=== PATIENT | female | born 1965 | race African-American/Black ===

== ENCOUNTER 2018-03-11 07:23 | Day surgery (SDC) | payer MEDICARE, MEDICAID ==
[2018-03-02 10:57] VITALS: BMI 32.1
[2018-03-11] MEDS ORDERED: CEFAZOLIN 2 GM/50 ML BAG ONE (08:28)
[2018-03-11 08:41] LABS: #Basophils 0.1 thou/uL (0.0-0.2); #Eosinphils 0.3 thou/uL (0.0-0.7); #Lymphocytes 3.1 thou/uL (1.20-3.40); #Monocytes 0.5 thou/uL (0.11-0.59); #Neutrophils 5.6 thou/uL (1.40-6.50); %Basophils 0.9 % (0.0-1.0); %Eosinophils 2.7 % (0.0-10.0); %Lymphocytes 32.2 % (21.0-51.0); %Monocytes 5.7 % (0.0-10.0); %Neutrophils 58.6 % (42.0-75.0); Hemoglobin 10.1 g/dL (12.0-16.0); Mean Corpuscular HGB CONC 29.7 g/dL (32.0-36.0); Mean Corpuscular Hemoglobin 26.1 pg (27.0-31.0); Mean Corpuscular Volume 87.7 fL (78.0-98.0); Mean Platelet Volume 7.5 fL (7.4-10.4); Platelet Count 252 thou/uL (130-400); RBC Distribution Width 13.9 % (11.5-14.5); Red Blood Cell (RBC) Count 3.88 mill/uL (4.20-5.40); White Blood Cell (WBC) Count 9.6 thou/uL (4.8-10.8)
[2018-03-11 09:05] LABS: Hypochromia SLIGHT = 6-15 cells (100X) (0-5/hpf); MDiff Complete? YES; PLT Morphology Comment Appears Adequate; Polychromasia SLIGHT = 2-3 cells (100X) (0-2/hpf)
[2018-03-11 09:08] LABS: Anion Gap 11 mmol/L (10-20); BUN (Urea Nitrogen) 22 mg/dL (9.8-20.1); Calc. Creatinine Clearance 69 mL/min (70-130); Carbon Dioxide 21 mmol/L (22-29); Chloride 108 mmol/L (98-107); Estimated GFR-MDRD 50; Glucose 160 mg/dL (70-105); Potassium 4.4 mmol/L (3.5-5.1); Sodium 136 mmol/L (136-145)
[2018-03-11] MEDS ORDERED: Fentanyl 100 MCG/2 ML VIAL ONE (09:18)
[2018-03-11] MEDS ORDERED: Bacitracin Zinc Ointment 30 gm TUBE ONE (09:25)
[2018-03-11] MEDS ORDERED: Bupivacaine/Epinephrine 0.25% 30 ML VIAL ONE ×2 (09:25→11:02)
[2018-03-11] MEDS ORDERED: Lidocaine 2% PF 5 ML VIAL ONE (09:25)
[2018-03-11] MEDS ORDERED: Propofol 500 MG/50 ML VIAL ONE (09:26)
[2018-03-11] MEDS ORDERED: Ketamine 50 MG/ML (10ML VIAL) ONE (09:26)
[2018-03-11] MEDS ORDERED: Midazolam HCl 2 mg/2 ml Vial ONE (09:26)
[2018-03-11] MEDS ORDERED: HYDROcodone/Acetaminophen 5/325 mg Tablet ONE (12:12)
[2018-03-11] MEDS ORDERED: PHENYLEPHRINE-NS 100 MCG/ML 10 ML SYRINGE ONE (17:07)
[2018-03-11] MEDS ORDERED: PROPOFOL 200 MG/20 ML VIAL ONE (17:07)
--- NOTE | 2018-03-13 09:38 | PDOC.OP ---
Operative Note - Operative Note Operative Note: PROCEDURE: Excision of left thigh subcutaneous mass DATE OF PROCEDURE: 03/11/2018 SURGEON: Munira Lewis M.D. PREOPERATIVE DIAGNOSES: Subcutaneous mass of the left thigh POSTOPERATIVE DIAGNOSIS: Subcutaneous mass in the left thigh HISTORY: Patient with a 10 x 7 cm subcutaneous mass on her left lateral thigh present for over 10 years. This was clinically consistent with a lipoma but on ultrasound there was a central area which was inhomogeneous and hypoechoic so a core biopsy was performed. This did not show any malignancy, just inflammatory and hemorrhagic changes. It was felt that the patient likely had an injury or fat necrosis of the lipoma. She desired to have it excised for symptomatic purposes as it was enlarging and becoming uncomfortable. PROCEDURE IN DETAIL: After informed consent was obtained the patient was taken to the operating which is placed in supine position and anesthesia was administered. She was prepped and draped in a standard sterile fashion and local anesthesia infused to the skin and subcutaneous tissue surrounding the mass. A longitudinal incision was made and dissection carried down to the mass which appeared to be fibrotic fat. This was in close approximation to the dermis of the skin anteriorly. The mass was dissected free circumferentially using Bovie electrocautery. It was well defined and lobulated and firm and fibrotic in appearance. The mass was excised and marked for orientation with a long posterior, short superior and looped superficial suture. Hemostasis was obtained using Bovie electrocautery and the wound was irrigated. A VÍCTOR drain was placed inferiorly and secured to the skin. The subcutaneous tissues were reapproximated at intervals with [id number] Vicryl sutures but the cavity could not be completely closed due to the large size of the defect and the lack of subcutaneous tissues anteriorly. Additional local anesthesia was infused for postoperative pain control and the skin was closed with a running 4-0 subcuticular Monocryl suture. Dermabond was placed and allowed to dry. The VÍCTOR was placed to suction and a fluffs dressing and Scott wrap was placed. The patient was taken to the recovery room in good condition. Estimated blood loss was minimal. There were no complications. Specimen is left lateral thigh mass.
== END 2018-03-11 12:48 | disposition home or self-care (01) ==
LOC: SDC 07:23
PROVIDERS: ATTEND Surgery
PROC: 0JBM0ZZ Excision of Left Upper Leg Subcutaneous Tissue and Fascia, Open Approach (ICD-10-PCS; principal; 2018-03-11)
DX: D17.24 Benign lipomatous neoplasm of skin and subcutaneous tissue of left leg (principal); I25.10 Atherosclerotic heart disease of native coronary artery without angina pectoris; F32.9 Major depressive disorder, single episode, unspecified; E11.9 Type 2 diabetes mellitus without complications; I10 Essential (primary) hypertension; Z79.02 Long term (current) use of antithrombotics/antiplatelets; Z79.82 Long term (current) use of aspirin; Z79.84 Long term (current) use of oral hypoglycemic drugs; Z79.899 Other long term (current) drug therapy
CPT/HCPCS: 80048; 85025; 88304; J2001; J2250; J2704; J3010

== ENCOUNTER 2018-05-11 06:04 | Inpatient (IN) | payer MEDICARE, MEDICAID ==
[2018-05-08 12:44] VITALS: BMI 32.1
[2018-05-11] MEDS ORDERED: Sodium Chloride 0.9% 10 ML ONE (06:30)
[2018-05-11 06:41] LABS: #Basophils 0.1 thou/uL (0.0-0.2); #Eosinphils 0.4 thou/uL (0.0-0.7); #Lymphocytes 2.8 thou/uL (1.20-3.40); #Monocytes 0.4 thou/uL (0.11-0.59); #Neutrophils 5.5 thou/uL (1.40-6.50); %Basophils 0.9 % (0.0-1.0); %Eosinophils 3.9 % (0.0-10.0); %Lymphocytes 30.6 % (21.0-51.0); %Monocytes 4.4 % (0.0-10.0); %Neutrophils 60.2 % (42.0-75.0); Hemoglobin 10.3 g/dL (12.0-16.0); Mean Corpuscular Hemoglobin 27.2 pg (27.0-31.0); Mean Platelet Volume 7.5 fL (7.4-10.4); Platelet Count 239 thou/uL (130-400); RBC Distribution Width 13.8 % (11.5-14.5); Red Blood Cell (RBC) Count 3.78 mill/uL (4.20-5.40); White Blood Cell (WBC) Count 9.1 thou/uL (4.8-10.8)
[2018-05-11] MEDS ORDERED: CEFAZOLIN 2 GM/50 ML BAG ONE (06:52)
[2018-05-11 06:59] LABS: Anion Gap 15 mmol/L (10-20); BUN (Urea Nitrogen) 17 mg/dL (9.8-20.1); Calc. Creatinine Clearance 74 mL/min (70-130); Calcium 9.1 mg/dL (7.8-10.44); Carbon Dioxide 21 mmol/L (22-29); Chloride 106 mmol/L (98-107); Estimated GFR-MDRD 54; Glucose 163 mg/dL (70-105); Potassium 4.2 mmol/L (3.5-5.1); Sodium 138 mmol/L (136-145)
[2018-05-11] MEDS ORDERED: Phenylephrine HCL 10 MG/ML VIAL ONE (07:09)
[2018-05-11] MEDS ORDERED: Fentanyl 250 MCG/5 ML VIAL ONE (07:09)
[2018-05-11] MEDS ORDERED: HYDROmorphone 2 MG/ML VIAL SLOW IVP PRN (07:57)
[2018-05-11] MEDS ORDERED: Promethazine HCl 25 MG/ML VIAL IM PRN ×2 (07:57→09:19)
[2018-05-11] MEDS ORDERED: Meperidine HCl/PF 25 MG/ML VIAL SLOW IVP PRN (07:57)
[2018-05-11] MEDS ORDERED: Promethazine HCl 25 MG/ML VIAL SLOW IVP PRN (07:57)
[2018-05-11] MEDS ORDERED: Morphine Sulfate 2 MG/ML SYRINGE SLOW IVP PRN (07:57)
[2018-05-11] MEDS ORDERED: PACU-Morphine 4MG/ML VIAL SLOW IVP PRN (07:57)
[2018-05-11] MEDS ORDERED: Ondansetron HCl/PF 4 MG/2 ML Vial IVP PRN (07:57)
[2018-05-11] MEDS ORDERED: Fentanyl 100 MCG/2 ML VIAL ONE ×3 (09:05→09:49)
[2018-05-11] MEDS ORDERED: traMADol HCl 50 MG TAB PO PRN ×2 (09:19)
[2018-05-11] MEDS ORDERED: Promethazine HCl 12.5 MG SUPP PR PRN (09:19)
[2018-05-11] MEDS ORDERED: tiZANidine HCl 4 MG TAB PO PRN (09:19)
[2018-05-11] MEDS ORDERED: diphenhydrAMINE 50 MG/ML VIAL IVP PRN (09:19)
[2018-05-11] MEDS ORDERED: Promethazine 25 MG TAB PO PRN (09:19)
[2018-05-11] MEDS ORDERED: Morphine 4 MG/ML VIAL SLOW IVP PRN ×2 (09:19→09:21)
[2018-05-11] MEDS ORDERED: Milk Of Magnesia 30 ML UDCUP PO PRN (09:19)
[2018-05-11] MEDS ORDERED: diphenhydrAMINE 25 MG CAP PO PRN (09:19)
[2018-05-11] MEDS ORDERED: HYDROcodone/Acetaminophen 10/325 mg Tablet PO PRN (09:19)
[2018-05-11] MEDS ORDERED: Mag-Al 1200 mg/1200 mg/30 ML UDCUP PO PRN (09:19)
[2018-05-11] MEDS ORDERED: Ondansetron PF 4 MG/2 ML Vial IM PRN (09:22)
[2018-05-11] MEDS ORDERED: Acetaminophen/Codeine 30-300mg Tablet PO PRN ×2 (09:26→09:27)
[2018-05-11] MEDS ORDERED: Nitroglycerin 0.4 MG TAB (25 Tab Bottle) SL PRN (09:28)
[2018-05-11] MEDS ORDERED: cloNIDine 0.1 MG TAB PO PRN (10:59)
[2018-05-11] MEDS ORDERED: HYDROcodone/Acetaminophen 5/325 mg Tablet PO PRN (10:59)
[2018-05-11] MEDS ORDERED: Benzonatate 100 MG CAP PO PRN (10:59)
[2018-05-11] MEDS ORDERED: HumaLOG 300 UNITS/3 ML VIAL SC PRN (10:59)
[2018-05-11] MEDS ORDERED: Bisacodyl 5 MG TAB PO PRN (10:59)
[2018-05-11] MEDS ORDERED: Diabetic Tussin 200 MG/10 ML UDCUP PO PRN (10:59)
[2018-05-11] MEDS ORDERED: Dextrose 50% Abboject 50 ML SYRINGE SLOW IVP PRN (10:59)
[2018-05-11] MEDS ORDERED: Senokot S 8.6-50 MG TAB PO PRN (10:59)
[2018-05-11] MEDS ORDERED: Acetaminophen 500 MG TAB PO PRN (10:59)
[2018-05-11] MEDS ORDERED: hydrALAZINE 20 MG/ML VIAL SLOW IVP PRN (10:59)
[2018-05-11] MEDS ORDERED: Dextrose 5% in Water 1,000 ML IV PRN (10:59)
[2018-05-11] MEDS: Sodium Chloride 0.9% 1,000 ML IV SCH ×2 (11:02→17:55)
--- NOTE | 2018-05-11 11:29 | OP ---
DATE OF PROCEDURE: 05/11/2018 APPLICATIONS DEVELOPER: Sven Collins PA-C PROCEDURES PERFORMED: Right L3-L4 laminectomy, facetectomy, foraminotomy, interbody arthrodesis, intervertebral biomechanical device, local morselized autograft, demineralized bone matrix, posterolateral arthrodesis L4-L5. DESCRIPTION OF PROCEDURE: The patient was brought to the operating room and intubated. She was rolled in a prone position on gel-filled chest rolls. An incision was made exposing L3 and L4 on the right and the level was confirmed by x-ray. We performed a right L3-L4 laminectomy, facetectomy, and foraminotomy, completely decompressing right L3 and right L4. The right L3-L4 disk was incised and debrided and completely removed. The bony endplates were decorticated for the purpose arthrodesis and appropriate-sized intervertebral biomechanical PEEK device was brought into the field and filled with demineralized bone matrix, local morselized autograft and tapped in place securely at L3-L4. Next, pedicle screws were placed at right L3 and right L4 using lateral fluoroscopic guidance. The froilan was secured between the screws, connected by nuts, which were final tightened. The wound was then extensively irrigated and maximum hemostasis was secured. Vancomycin powder was applied and the wound was closed in anatomic layers. Job ID: [id number]
[2018-05-11] MEDS: HumaLOG 300 UNITS/3 ML VIAL SC PRN ×2 (14:10→17:58)
[2018-05-11] MEDS: CEFAZOLIN 2 GM/50 ML-DEXTROSE 2 GM in Premix Bag 1 BAG IVPB SCH ×2 (14:10→23:20)
--- NOTE | 2018-05-11 14:26 | PDOC.PN ---
- Subjective Encounter Start Date: 05/11/18 Encounter Start Time: 14:24 Subjective: s/p lumbar laminectomy.denies any pain.no CP/SOB.family at bedside -: IM team consulted for medical Management.PCP Dr. Howell -: EMR reviewed in detail from prior hospitalizations vehicle safety inspector is Dr. Duque.Pt is compliant with meds and appointments - Objective MAR Reviewed: Yes Vital Signs & Weight: Vital Signs (12 hours) Temp Pulse Resp BP Pulse Ox 05/11/18 12:00 94 L 05/11/18 10:25 97.8 F 71 16 117/70 94 L Weight Weight 199 lb Result Diagrams: 05/11/18 06:33 05/11/18 06:33 Phys Exam - Physical Examination Constitutional: NAD HEENT: PERRLA, moist MMs, sclera anicteric, oral pharynx no lesions Neck: no nodes, no JVD, supple, full ROM Respiratory: no wheezing, no rales, no rhonchi, clear to auscultation bilateral Cardiovascular: RRR, no significant murmur, no rub Gastrointestinal: soft, non-tender, no distention, positive bowel sounds Musculoskeletal: no edema, pulses present Neurological: non-focal, normal sensation, moves all 4 limbs Psychiatric: normal affect, A&O x 3 Skin: no rash Dx/Plan (1) Chronic systolic CHF (congestive heart failure), NYHA class 2 Code(s): I50.22 - CHRONIC SYSTOLIC (CONGESTIVE) HEART FAILURE Status: Chronic Comment: Cont ASA,Statin,BB,IVANIA-I.On plavix (2) DM2 (diabetes mellitus, type 2) Status: Chronic (3) HTN (hypertension) Code(s): I10 - ESSENTIAL (PRIMARY) HYPERTENSION Status: Chronic (4) Status post lumbar laminectomy Code(s): Z98.890 - OTHER SPECIFIED POSTPROCEDURAL STATES Status: Acute (5) CAD (coronary artery disease) Code(s): I25.10 - ATHSCL HEART DISEASE OF [place] CORONARY ARTERY W/O ANG PCTRS Status: Chronic Comment: Mild-according to Cath in 2014 (6) Mitral valve regurgitation Status: Chronic Qualifiers: Cardiac valve disease etiology: nonrheumatic Qualified Code(s): I34.0 - Nonrheumatic mitral (valve) insufficiency - Plan plan discussed w/ family, PT/OT, respiratory therapy, incentive spirometry, out of bed/ambulate, DVT proph w/SCDs Hold metformin,.add ISS w Accuchecks -: BMP and CBC in am -: cont home meds as below. HD stable for now -: Pt denies having any PPM/AICD.last EF 25% in 2014 but reports that she -: follows w cardiology as an OP regularly.Asymptomatic.suspect improvement * .IM team will follow * Pain control,rehab options per Primary team Review of Systems - Review of Systems Constitutional: negative: fever, chills, sweats, weakness, malaise, other ENT: negative: Ear Pain, Ear Discharge, Nose Pain, Nose Discharge, Nose Congestion, Mouth Pain, Mouth Swelling, Throat Pain, Throat Swelling, Other Respiratory: negative: Cough, Dry, Shortness of Breath, Hemoptysis, SOB with Excertion, Pleuritic Pain, Sputum, Wheezing Cardiovascular: negative: chest pain, palpitations, orthopnea, paroxysmal nocturnal dyspnea, edema, light headedness, other Gastrointestinal: negative: Nausea, Vomiting, Abdominal Pain, Diarrhea, Constipation, Melena, Hematochezia, Other Genitourinary: negative: Dysuria, Frequency, Incontinence, Hematuria, Retention , Other Musculoskeletal: negative: Neck Pain, Shoulder Pain, Arm Pain, Back Pain, Hand Pain, Leg Pain, Foot Pain, Other Neurological: negative: Weakness, Numbness, Incoordination, Change in Speech, Confusion, Seizures, Other - Medications/Allergies Allergies/Adverse Reactions: Allergies Allergy/AdvReac Type Severity Reaction Status Date / Time No Known Allergies Allergy Verified 05/08/18 12:37 Medications: Current Medications Acetaminophen (Tylenol) 1,000 mg PO Q6H PRN PRN Reason: Mild Pain (1-3) Acetaminophen/Codeine Phosphate (Tylenol #3) 1 tab PO Q6H PRN PRN Reason: Mild Pain (1-3) Acetaminophen/Codeine Phosphate (Tylenol #3) 2 tab PO Q6H PRN PRN Reason: Moderate Pain (4-6) Hydrocodone Bitart/Acetaminophen ([place] 10/325) 1 tab PO Q4H PRN PRN Reason: PAIN (1-3) Hydrocodone Bitart/Acetaminophen ([place] 10/325) 2 tab PO Q4H PRN PRN Reason: PAIN (4-6) Hydrocodone Bitart/Acetaminophen ([place] 5/325) 1 tab PO Q4H PRN PRN Reason: Moderate Pain (4-6) Al Hydroxide/Mg Hydroxide (Maalox) 30 ml PO Q4H PRN PRN Reason: Heartburn or Indigestion Atorvastatin Calcium (Lipitor) 10 mg PO HS [facility] Benzonatate (Tessalon) 100 mg PO Q6H PRN PRN Reason: Cough Bisacodyl (Dulcolax) 10 mg PO DAILYPRN PRN PRN Reason: Constipation Carvedilol (Coreg) 25 mg PO BID [facility] Clonidine (Catapres) 0.1 mg PO Q4H PRN PRN Reason: SBP > 160____ Dextrose/Water (Dextrose 50%) 25 gm SLOW IVP PRN PRN PRN Reason: Hypoglycemia Diphenhydramine HCl (Benadryl) 25 mg PO Q6H PRN PRN Reason: Itching Diphenhydramine HCl (Benadryl) 25 mg IVP Q6H PRN PRN Reason: Itching Famotidine (Pepcid) 20 mg PO DAILY [facility] Furosemide (Lasix) 20 mg PO DAILY [facility] Glucagon (Glucagon) 1 mg IM PRN PRN PRN Reason: Hypoglycemia Guaifenesin (Robitussin Sf) 200 mg PO Q4H PRN PRN Reason: Cough Hydralazine HCl (Apresoline) 50 mg PO TID [facility] Hydralazine HCl (Apresoline) 10 mg SLOW IVP Q4H PRN PRN Reason: SBP > 180 and HR < 70 Sodium Chloride (Normal Saline 0.9%) 1,000 mls @ 75 mls/hr IV .[id number] [facility] Last Admin: 05/11/18 11:02 Dose: Not Given Cefazolin Sodium/Dextrose 2 gm (/ Device) 50 mls @ 100 mls/hr IVPB Q8HR [facility] Stop: 05/11/18 22:29 Dextrose/Water (D5w) 1,000 mls @ 0 mls/hr IV .Q0M PRN PRN Reason: Hypoglycemia Insulin Human Lispro (Humalog) 0 units SC .MODERATE SLIDING SC PRN PRN Reason: Moderate Correctional Scale Insulin Human Lispro (Humalog) 0 units SC .BEDTIME SLIDING SC PRN PRN Reason: Bedtime Correctional Scale Lisinopril (Zestril) 10 mg PO BID [facility] Magnesium Hydroxide (Milk Of Magnesium) 30 ml PO Q12H PRN PRN Reason: Constipation Morphine Sulfate (Morphine) 2 mg SLOW IVP Q1H PRN PRN Reason: MODERATE BREAKTHROUGH PAIN Last Admin: 05/11/18 11:01 Dose: 2 mg Morphine Sulfate (Morphine) 4 mg SLOW IVP Q1H PRN PRN Reason: SEVERE BREAKTHROUGH PAIN Nitroglycerin (Nitrostat) 0.4 mg SL Q5MIN PRN PRN Reason: Chest Pain Ondansetron HCl (Zofran) 4 mg IM Q8H PRN PRN Reason: Nausea/Vomiting Promethazine HCl (Phenergan) 12.5 mg IM Q4H PRN PRN Reason: Nausea/Vomiting Promethazine HCl (Phenergan) 12.5 mg PO Q4H PRN PRN Reason: Nausea/Vomiting Promethazine HCl (Phenergan Suppository) 12.5 mg DE Q4H PRN PRN Reason: Nausea/Vomiting Senna/Docusate Sodium (Senokot S) 2 tab PO BID PRN PRN Reason: Constipation Sertraline HCl (Zoloft) 100 mg PO DAILY [facility] Sodium Chloride (Flush - Normal Saline) 10 ml IVF Q12HR [facility] Sodium Chloride (Flush - Normal Saline) 10 ml IVF PRN PRN PRN Reason: Saline Flush Tizanidine HCl (Zanaflex) 4 mg PO Q6H PRN PRN Reason: MUSCLE SPASM Tramadol HCl (Ultram) 50 mg PO Q6H PRN PRN Reason: PAIN (1-3) Tramadol HCl (Ultram) 100 mg PO Q6H PRN PRN Reason: PAIN (4-6) Zolpidem Tartrate (Ambien) 5 mg PO HS [facility]
[2018-05-11] MEDS: HYDROcodone/Acetaminophen 10/325 mg Tablet PO PRN ×3 (14:51→23:26)
[2018-05-11] MEDS: hydrALAZINE 25 MG TAB PO SCH ×2 (14:56→22:31)
[2018-05-11] MEDS ORDERED: Metoclopramide HCl 10 MG/2 ML VIAL ONE (16:34)
[2018-05-11] MEDS ORDERED: Ondansetron PF 4 MG/2 ML Vial ONE (16:34)
[2018-05-11] MEDS ORDERED: Glycopyrrolate 0.2 MG/ML 5 ML SYRINGE ONE (16:34)
[2018-05-11] MEDS ORDERED: PROPOFOL 200 MG/20 ML VIAL ONE (16:34)
[2018-05-11] MEDS ORDERED: Rocuronium Bromide 10 MG/ML (10ML VIAL) ONE (16:34)
[2018-05-11] MEDS ORDERED: Dexamethasone 20 MG/5 ML VIAL ONE (16:34)
[2018-05-11] MEDS ORDERED: Lidocaine 1% PF 5 ML VIAL ONE ×2 (16:34)
[2018-05-11] MEDS ORDERED: metFORMIN 500 MG TAB PO SCH (17:00)
[2018-05-11] MEDS ORDERED: Famotidine 20 MG TAB PO SCH (20:30)
[2018-05-11] MEDS ORDERED: Atorvastatin Calcium 10 MG TAB PO SCH (21:00)
[2018-05-11] MEDS ORDERED: Zolpidem Tartrate 5 MG TAB PO SCH (21:00)
[2018-05-11] MEDS: Carvedilol 25 MG TAB PO SCH (22:30)
[2018-05-11] MEDS: Lisinopril 10 MG TAB PO SCH (22:31)
[2018-05-12 00:12] VITALS: TEMP 98.6
[2018-05-12] MEDS: HYDROcodone/Acetaminophen 10/325 mg Tablet PO PRN ×2 (03:03→09:19)
[2018-05-12 08:51] VITALS: BP 104/58
[2018-05-12] MEDS ORDERED: Furosemide 20 MG TAB PO SCH (09:00)
[2018-05-12] MEDS ORDERED: Famotidine 20 MG TAB PO SCH ×2 (09:00)
[2018-05-12] MEDS: Carvedilol 25 MG TAB PO SCH (09:19)
[2018-05-12] MEDS: hydrALAZINE 25 MG TAB PO SCH (09:20)
[2018-05-12] MEDS: Lisinopril 10 MG TAB PO SCH (09:21)
== END 2018-05-12 11:15 | disposition home or self-care (01) | DRG 460 ==
LOC: SURG A 06:04 → SURG B 10:44
PROVIDERS: ADMIT Neurological Surgery; ATTEND Neurological Surgery
PROC: 0SG00AJ Fusion of Lumbar Vertebral Joint with Interbody Fusion Device, Posterior Approach, Anterior Column, Open Approach (ICD-10-PCS; principal; 2018-05-11)
PROC: 01NB0ZZ Release Lumbar Nerve, Open Approach (ICD-10-PCS; 2018-05-11)
PROC: 0SB20ZZ Excision of Lumbar Vertebral Disc, Open Approach (ICD-10-PCS; 2018-05-11)
DX: M47.816 Spondylosis without myelopathy or radiculopathy, lumbar region (principal); I50.22 Chronic systolic (congestive) heart failure; E11.9 Type 2 diabetes mellitus without complications; I11.0 Hypertensive heart disease with heart failure; I34.0 Nonrheumatic mitral (valve) insufficiency; I25.10 Atherosclerotic heart disease of native coronary artery without angina pectoris; F32.9 Major depressive disorder, single episode, unspecified; Z86.73 Personal history of transient ischemic attack (TIA), and cerebral infarction without residual deficits
CPT/HCPCS: 36415; 36416; 76000; 80048; 85025; 93005; 93010; C1713; C1768; J0131; J1100; J2001; J2270; J2370; J2405; J2704; J2765; J3010; J3370; J3490

== ENCOUNTER 2018-05-26 15:44 | Outpatient (CLI) | payer MEDICARE, MEDICAID ==
--- NOTE | 2018-04-07 15:15 | MRI ---
NONCONTRAST MRI LUMBAR SPINE: Date: 04/07/18 HISTORY: Lumbar radiculopathy. Patient has had low back pain for several years now with right leg pain. COMPARISON: None available. FINDINGS: The retroperitoneal structures demonstrate a normal MRI appearance. There is a small focus of increased T1 and T2-weighted signal intensity along the inferior end plate of L2 vertebral body which may represent focal area of fat versus hemangioma. Normal signal intensity is otherwise demonstrated throughout the bone marrow. Conus medullaris is normal in appearance and t erminates at the L1-2 level. T12-L1 Level: There is no disc bulge or disc herniation. Central spinal canal and neural foramina ar e patent. L1-2 Level: There is no disc bulge or disc herniation. Central spinal canal and neural foramina are patent. Mild facet degenerative changes are present. L2-3 Level: There is a mild broad based disc bulge with facet hypertrophic changes. There is only mi nimal narrowing of the central spinal canal. Neural foramina are patent. L3-4 Level: There are moderate facet hypertrophic changes with ligamentous thickening. There is mild increased T2-weighted signal intensity on fluid sensitive sequences adjacent to the right facet join t, likely related to the prominent facet hypertrophic changes. No joint fluid is seen within the face t joint. There is minimal disc osteophyte complex present. Minimal narrowing of the central spinal ca nal is present. There is mild bilateral neural foraminal narrowing. L4-5 Level: There is mild loss of intervertebral disc height. There is a broad based disc osteophyte complex. Moderate facet hypertrophic changes are seen, greater on the right, with mild ligamentous t hickening. However, there is only minimal narrowing of the central spinal canal. There is mild bilate ral neural foraminal narrowing, greater on the right. L5-S1 Level: There is no significant disc bulge or disc herniation. There are mild facet hypertrophi c changes present. Central spinal canal and neural foramina are patent. IMPRESSION: Mild degenerative changes throughout the lumbar spine. No high grade central canal stenosis or neural foraminal narrowing is present. Multilevel facet degenerative changes are present. POS: [facility]
--- NOTE | 2018-05-26 18:39 | RAD ---
LUMBAR SPINE TWO VIEWS: 05/26/18 HISTORY: M43.16 - spondylolisthesis lumbar region. Followup recent surgery. COMPARISON: 12/08/17 FINDINGS: Right sided pedicle screws placed at L3-L4 with intradiscal prosthesis. No significant malalignment. Generalized spondylosis. IMPRESSION: Right sided pedicle screws at L3-L4 with intradiscal prosthesis with generalized spondylosis without significant acute malalignment. POS: [facility]
== END 2018-05-26 15:45 | disposition home or self-care (01) ==
LOC: TBSIIMAG 15:44
PROVIDERS: ATTEND Neurological Surgery
DX: M43.16 Spondylolisthesis, lumbar region (principal); M48.061 Spinal stenosis, lumbar region without neurogenic claudication; M47.816 Spondylosis without myelopathy or radiculopathy, lumbar region
CPT/HCPCS: 72100; 72148

== ENCOUNTER 2018-07-23 13:08 | Outpatient (CLI) | payer MEDICARE, MEDICAID ==
--- NOTE | 2018-07-23 13:54 | RAD ---
LUMBAR SPINE TWO VIEWS: History: Disc degeneration lumbar spine. Follow up. Comparison: 05-26-18 FINDINGS: Right sided pedicle screws at L3 and L4 with intradiscal prosthesis. No significant malalignment. Sta ble from prior study. IMPRESSION: Stable post-operative changes at L3-4. Generalized spondylosis. No significant malalignment. POS: [facility]
== END 2018-07-23 13:09 | disposition home or self-care (01) ==
LOC: TBSIIMAG 13:08
PROVIDERS: ATTEND Neurological Surgery
DX: M51.36 Other intervertebral disc degeneration, lumbar region (principal); M47.816 Spondylosis without myelopathy or radiculopathy, lumbar region; Z98.890 Other specified postprocedural states
CPT/HCPCS: 72100

== ENCOUNTER 2018-10-20 13:27 | Outpatient (CLI) | payer MEDICARE ==
--- NOTE | 2018-10-20 13:52 | RAD ---
EXAM: 3 views of the lumbosacral spine HISTORY: Low back pain with radiculopathy COMPARISON: 07/23/2018 FINDINGS: 3 views of the lumbosacral spine shows the patient to be status post posterior fusion of L3 and L4 with right-sided pedicle screws. A disc spacer is seen in good position within the L3/4 disc space. No perihardware lucency is seen. There is normal height and alignment of the vertebral xavier dies and intervertebral discs without fracture or subluxation. Posterior facet arthrosis is seen in the lower lumbosacral spine. The sacroiliac joints are unremarkable. IMPRESSION: Stable postoperative changes of lumbar spine.
== END 2018-10-20 13:28 | disposition home or self-care (01) ==
LOC: TBSIIMAG 13:27
PROVIDERS: ATTEND Neurological Surgery
DX: M54.16 Radiculopathy, lumbar region (principal); Z98.890 Other specified postprocedural states
CPT/HCPCS: 72100

== ENCOUNTER 2018-11-16 13:06 | Outpatient (CLI) | payer MEDICARE ==
--- NOTE | 2018-11-16 15:09 | CT ---
CT lumbar spine noncontrast: DATE: 52-year-old female with right lumbar radiculopathy. FINDINGS: There are 5 lumbar-type vertebrae. Vertebral body heights are maintained. Mild disc space narrowing a t L4-5. Rest of the disc spaces are maintained. T12-L1: No high-grade central or neural foraminal stenosis. L1-2: Mild to moderate right facet DJD. No central or high-grade neural foraminal stenosis. L2-3: Disc space maintained. Moderate right facet DJD. Moderate right neural foraminal stenosis. Mild left neural foraminal stenosis. Mild central spinal canal stenosis. L3-4: Unilateral right L3 pedicle screw is located mostly external, lateral to the cortex of the righ t L3 vertebral body. Graft material within the disc space. Unilateral right L4 pedicle screw is located almost entirely within bone. The screws do not traverse neural foramina or spinal canal. Mild to moderate left neural foraminal stenosis. No high-grade central spinal canal stenosis. Unilateral left-sided onlay bone graft fusion. L4-5: Mild disc space narrowing. Diffuse disc bulge. Severe right facet DJD. Moderate to severe left facet DJD. Ligamentum flavum thickening. Lateral recess stenosis bilaterally. Mild to moderate central spinal canal stenosis. Mild to moderate left neural foraminal stenosis. Moderate right neural foraminal stenosis. L5-S1: Diffuse disc bulge, mild. No high-grade central or neural foraminal stenosis. Moderate to arcadio re left facet DJD with vacuum joint phenomenon. Relatively normal right facet joint. IMPRESSION: 1. Unilateral right posterior lumbar interbody fusion with hardware, and left-sided onlay bone graft fusion, at L3-4. 2. Multilevel facet osteoarthrosis.
--- NOTE | 2018-11-16 15:59 | MRI ---
MRI cervical spine noncontrast: DATE: 11/16/2018 HISTORY: 52 year old female with cervicalgia and cervical radiculopathy. COMPARISON: None FINDINGS: Vertebral body heights are maintained. Reversal of curvature in upper C-spine. Developmentally small caliber spinal canal exacerbated by cervical spondylosis. C1-2: No high-grade central stenosis C2-3: Disc space maintained. No high-grade facet DJD. Mild ligamentum flavum thickening. Tiny central disc-osteophyte complex. Mild central stenosis. No significant neural foraminal stenosis. C3-4: Minimal disc space narrowing. Central focal small to moderate-sized disc herniation superimpose d on broad-based disc-osteophytic bar complex compresses the anterior portion of the spinal cord. Ligamentum flavum thickening indents the posterior aspect of the spinal cord. The spinal cord is flat tened in the AP dimension. Because of motion artifact, it is difficult to evaluate for mild focal cord signal abnormality. Severe central spinal canal stenosis. Severe bilateral neural foraminal sten osis. Mild left facet DJD. Mild to moderate right facet DJD. C4-5: Moderate disc space narrowing, especially anteriorly. Ankylosis of the left facet joint, plus s evere bony hypertrophy of the left facet complex, perhaps developmental. No significant right facet DJD. Moderate central spinal canal stenosis mostly on developmental basis. Mild bilateral neural fora bozena stenosis. C5-6: Moderate ligamentum flavum thickening indents the dorsal aspect of the spinal cord. Broad-based disc herniation or disc-osteophytic bar complex or disc bulge indents the ventral surface of the spinal cord. Questionable mild intramedullary cord signal abnormality. Severe central spinal canal st enosis. Moderate size bilateral uncinate process osteophytes. Severe bilateral neural foraminal stenosis. Moderate disc space narrowing. Modic type II endplate marrow changes. Moderate bilateral fa cet DJD. C6-7: Mild to moderate central spinal canal stenosis. Minimal ligamentum flavum thickening. No high-g rade neural foraminal stenosis. Disc space maintained. No high-grade facet DJD. C7-T1: Mild ligamentum flavum thickening. Disc space maintained. Mild to moderate right facet DJD. Mo derate left facet DJD. Mild bilateral neural foraminal stenosis. Mild central stenosis. IMPRESSION: 1. Severe central spinal canal stenosis with cord compression at C5-6, and especially at C3-4 due to cervical spondylosis. 2. In addition to chronic cervical spondylosis causing the cord compression, there is a superimposed central disc herniation at C3-4 contributing to the cord compression. 3. Severe bilateral neural foraminal stenosis at C3-4 and C5-6..
--- NOTE | 2018-11-16 17:01 | MRI ---
MRI LUMBAR SPINE WITHOUT CONTRAST: HISTORY: M54.16, lumbar radiculopathy. COMPARISON: Lumbar spine MRI from 2018. FINDINGS: No hydronephrosis. Aortic contour is nonaneurysmal. No marrow infiltrative process. The conus medullaris terminates near the superior endplate of L2. Levels are as follows: L1-L2; Moderate facet arthrosis. No neural foraminal or spinal canal narrowing. Normal disk hydrat ion. L2-L3: There are low-grade bilateral subforaminal disk-osteophyte complexes. Moderate to severe fac et arthropathy. Moderate bilateral neural foraminal narrowing. L3-L4: Right unilateral posterior spinal fusion hardware with right-sided interbody cage placement. There continues to be a large right posterior subforaminal and lateral recess osteophyte, causing mo derate to severe right-sided neural foraminal narrowing. Moderate right subforaminal and lateral rec ess posterior disk-osteophyte complex causes moderate neural foraminal narrowing. L4-L5: Circumferential disk-osteophyte complex, moderate in size. Moderate facet arthropathy. Mode rate bilateral neural foraminal narrowing. L5-S1: Normal disk hydration. Mild facet arthropathy. No neural foraminal or spinal canal narrowin g. IMPRESSION: Moderate spondylosis, as described, with multilevel neural foraminal narrowing. POS: [facility]
--- NOTE | 2018-11-16 17:15 | MRI ---
MRI RIGHT SHOULDER WITHOUT IV CONTRAST: HISTORY: Right shoulder pain, M75.41. Impingement syndrome. TECHNIQUE: Multiplanar, multisequence MRI examination of the right shoulder is performed. FINDINGS: AC joint arthrosis changes are noted, with minimal fat stranding in the subacromial bursa. Some subc hondral cystic changes are noted near the insertion of the infraspinatus tendon. Small lesser tubero sity subchondral cystic focus. No evidence for complete or full-thickness retracted rotator cuff tea r. Motion artifact on numerous sequences considerably lowers the sensitivity of this study. Subscap ularis and biceps tendons appear intact. The visualized labrum is unremarkable, although somewhat ob scured because of the motion. IMPRESSION: 1. Minimal acromioclavicular joint arthrosis changes. 2. Minimal posterior greater tuberosity subchondral cystic changes with one small subchondral cyst o f the lesser tuberosity. 3. No complete or full-thickness retracted rotator cuff tear. POS: [facility]
== END 2018-11-16 13:07 | disposition home or self-care (01) ==
LOC: BICCT 13:06
PROVIDERS: ATTEND Neurological Surgery
DX: M75.41 Impingement syndrome of right shoulder (principal); M47.26 Other spondylosis with radiculopathy, lumbar region; Z98.1 Arthrodesis status; M19.011 Primary osteoarthritis, right shoulder; M48.061 Spinal stenosis, lumbar region without neurogenic claudication; M48.02 Spinal stenosis, cervical region; M47.22 Other spondylosis with radiculopathy, cervical region; M50.11 Cervical disc disorder with radiculopathy, high cervical region
CPT/HCPCS: 72131; 72141; 72148

== ENCOUNTER 2019-01-11 08:20 | Observation (INO) | payer MEDICARE, MEDICAID ==
[2019-01-08 12:28] VITALS: BMI 31.4
[2019-01-11 09:17] LABS: #Basophils 0.1 thou/uL (0.0-0.2); #Eosinphils 0.3 thou/uL (0.0-0.7); #Lymphocytes 2.9 thou/uL (1.20-3.40); #Monocytes 0.4 thou/uL (0.11-0.59); #Neutrophils 4.7 thou/uL (1.40-6.50); %Basophils 0.8 % (0.0-1.0); %Eosinophils 3.8 % (0.0-10.0); %Lymphocytes 34.6 % (21.0-51.0); %Monocytes 5.3 % (0.0-10.0); %Neutrophils 55.5 % (42.0-75.0); Hemoglobin 10.3 g/dL (12.0-16.0); Mean Corpuscular HGB CONC 32.2 g/dL (32.0-36.0); Mean Corpuscular Hemoglobin 26.9 pg (27.0-31.0); Mean Corpuscular Volume 83.5 fL (78.0-98.0); Mean Platelet Volume 8.9 fL (7.4-10.4); Platelet Count 210 thou/uL (130-400); RBC Distribution Width 17.2 % (11.5-14.5); Red Blood Cell (RBC) Count 3.83 mill/uL (4.20-5.40); White Blood Cell (WBC) Count 8.4 thou/uL (4.8-10.8)
[2019-01-11 10:20] LABS: Anion Gap 12 mmol/L (10-20); BUN (Urea Nitrogen) 17 mg/dL (9.8-20.1); Calc. Creatinine Clearance 79 mL/min (70-130); Calcium 9.2 mg/dL (7.8-10.44); Carbon Dioxide 28 mmol/L (22-29); Chloride 104 mmol/L (98-107); Estimated GFR-MDRD 60; Glucose 112 mg/dL (70-105); Potassium 4.2 mmol/L (3.5-5.1); Sodium 140 mmol/L (136-145)
[2019-01-11] MEDS ORDERED: Thrombin 5000 UNITS/5 ML VIAL ONE (11:26)
[2019-01-11] MEDS ORDERED: Sodium Chloride 0.9% 10 ML ONE (11:26)
[2019-01-11] MEDS ORDERED: Fentanyl 100 MCG/2 ML VIAL ONE ×4 (11:44→14:44)
[2019-01-11] MEDS ORDERED: Ondansetron HCl/PF 4 MG/2 ML Vial IVP PRN (13:09)
--- NOTE | 2019-01-11 14:26 | OP ---
DATE OF PROCEDURE: 01/11/2019 BANDAGE MAKER: Sven Collins PA-C PROCEDURE PERFORMED: Anterior cervical diskectomy C3 through C6, interbody arthrodesis, intervertebral biomechanical device, local morselized autograft, demineralized bone matrix, anterior titanium instrumentation C3 to C6. DESCRIPTION OF PROCEDURE: The patient was brought to the operating room and intubated. She was positioned supine with the head in modest extension on gel-filled donut. An incision was made in the right precervical area and dissected medial to the sternocleidomastoid muscle, identified the anterior cervical spine, and the level was confirmed by x-ray. There were severe and dramatic osteophytes at C3-C4 and C5-C6 as anticipated. The C4-C5 level seemed to have partial autofusion. We placed distraction between C3 and C6. We debrided the intervertebral disks at C3-C4 and C5-C6. At the C4-C5, there was insufficient remaining disk material to debride. Next, bony endplates were decorticated for the purpose of arthrodesis and appropriate-sized intervertebral biomechanical PEEK device was brought into the field, filled with demineralized bone matrix local morselized autograft, and tapped in place securely at C3-C4 and C5-C6. Next, an anterior plate was brought into the field and secured to C3, C4, C5, and C6 using two 14-mm screws at each level. The wound was then extensively irrigated. MAC hemostasis was secured. The wound was closed in anatomic layers over drain. Job ID: [id number]
[2019-01-11] MEDS ORDERED: Insulin Regular 300 UNITS/3 ML VIAL ONE (15:51)
[2019-01-11] MEDS ORDERED: Dexamethasone 20 MG/5 ML VIAL ONE (16:53)
[2019-01-11] MEDS ORDERED: Succinylcholine Chloride 20 MG/ML 10 ml SYRINGE FS ONE (16:53)
[2019-01-11] MEDS ORDERED: PROPOFOL 200 MG/20 ML VIAL ONE (16:53)
[2019-01-11] MEDS ORDERED: Rocuronium Bromide 10 MG/ML (10ML VIAL) ONE (16:53)
[2019-01-11] MEDS ORDERED: Lidocaine 1% PF 5 ML VIAL ONE (16:53)
[2019-01-11] MEDS ORDERED: Ondansetron PF 4 MG/2 ML Vial ONE (16:53)
[2019-01-11] MEDS ORDERED: Mag-Al 1200 mg/1200 mg/30 ML UDCUP PO PRN (18:17)
[2019-01-11] MEDS ORDERED: tiZANidine HCl 4 MG TAB PO PRN (18:17)
[2019-01-11] MEDS ORDERED: Promethazine HCl 12.5 MG SUPP PR PRN (18:17)
[2019-01-11] MEDS ORDERED: Ondansetron PF 4 MG/2 ML Vial IVP PRN (18:17)
[2019-01-11] MEDS ORDERED: diphenhydrAMINE 50 MG/ML VIAL IVP PRN (18:17)
[2019-01-11] MEDS ORDERED: Promethazine 25 MG TAB PO PRN (18:17)
[2019-01-11] MEDS ORDERED: Promethazine HCl 25 MG/ML VIAL IM PRN (18:17)
[2019-01-11] MEDS ORDERED: traMADol HCl 50 MG TAB PO PRN ×2 (18:17)
[2019-01-11] MEDS ORDERED: HYDROcodone/Acetaminophen 10/325 mg Tablet PO PRN (18:17)
[2019-01-11] MEDS ORDERED: Morphine 4 MG/ML VIAL SLOW IVP PRN (18:17)
[2019-01-11] MEDS ORDERED: diphenhydrAMINE 25 MG CAP PO PRN (18:17)
[2019-01-11] MEDS ORDERED: Morphine 2 MG/ML SYRINGE SLOW IVP PRN (18:18)
[2019-01-11] MEDS ORDERED: Nitroglycerin 0.4 MG TAB (25 Tab Bottle) SL PRN (18:26)
[2019-01-11] MEDS: Sodium Chloride 0.9% 1,000 ML IV SCH (18:35)
[2019-01-11] MEDS: CEFAZOLIN 2 GM in Premix Bag 1 BAG IVPB SCH (20:11)
[2019-01-11] MEDS: Gabapentin 300 MG CAP PO SCH (20:11)
[2019-01-11] MEDS: hydrALAZINE 25 MG TAB PO SCH (20:12)
[2019-01-11] MEDS: Lisinopril 10 MG TAB PO SCH (20:13)
[2019-01-11] MEDS ORDERED: Pravastatin Sodium 40 MG TAB PO SCH (21:00)
[2019-01-11] MEDS ORDERED: Zolpidem Tartrate 5 MG TAB PO SCH (21:00)
[2019-01-11] MEDS ORDERED: CEFAZOLIN 2 GM in Premix Bag 1 BAG IVPB SCH (22:00)
[2019-01-12] MEDS: HYDROcodone/Acetaminophen 10/325 mg Tablet PO PRN ×2 (01:13→07:58)
[2019-01-12] MEDS: CEFAZOLIN 2 GM in Premix Bag 1 BAG IVPB SCH ×2 (04:34→11:20)
[2019-01-12] MEDS ORDERED: HumaLOG 300 UNITS/3 ML VIAL SC PRN (06:42)
[2019-01-12] MEDS ORDERED: Dextrose 50% Abboject 50 ML SYRINGE IVP PRN (06:42)
[2019-01-12] MEDS ORDERED: Dextrose 5% in Water 1,000 ML IV PRN (06:42)
[2019-01-12] MEDS: HumaLOG 300 UNITS/3 ML VIAL SC PRN ×2 (07:10→12:50)
[2019-01-12] MEDS: Sodium Chloride 0.9% 1,000 ML IV SCH (07:29)
[2019-01-12] MEDS: Gabapentin 300 MG CAP PO SCH (07:57)
[2019-01-12] MEDS: Lisinopril 10 MG TAB PO SCH (07:57)
[2019-01-12] MEDS: hydrALAZINE 25 MG TAB PO SCH (07:57)
[2019-01-12] MEDS ORDERED: metFORMIN 850 MG TAB PO SCH (08:00)
[2019-01-12 11:39] VITALS: BP 119/76; TEMP 98.1
--- NOTE | 2019-01-12 12:09 | DIS ---
DATE OF ADMISSION: 01/11/2019 DATE OF DISCHARGE: 01/12/2019 The patient is a 53-year-old female, recently seen in our office for progressive neck pain, who underwent C3-C6 anterior diskectomy and fusion. Following the surgery, she was transitioned to the Med/Surg floor, where her pain has been well controlled with p.o. medications. She is complaining some soreness in the posterior shoulders and cervical spine. Again, this is well controlled with her p.o. medications. She has some mild dysphagia, but she is tolerating a regular diet. She is voiding appropriately. She has been up and down walking easily back and forth to the bathroom and short distances in the sarmiento. Her VÍCTOR drain put out 50 overnight and was removed on postoperative day 1. We will plan to dismiss the patient to home. I have discussed home care precautions, provided her with scripts for Ventress and Zanaflex. We will follow up with the patient in 2 weeks with x-rays. Job ID: [id number]
--- NOTE | 2019-01-13 16:40 | EKG ---
Test Reason : PREOP Blood Pressure : / mmHG Vent. Rate : 072 BPM Atrial Rate : 072 BPM P-R Int : 166 ms QRS Dur : 096 ms QT Int : 380 ms P-R-T Axes : 064 003 026 degrees QTc Int : 416 ms Normal sinus rhythm Moderate voltage criteria for LVH, may be normal variant Borderline ECG When compared with ECG of 11-MAY-2018 06:41, No significant change was found Confirmed by DR. Chinedu BHANDARI ([id number]) on 01/13/2019 4:39:41 PM Referred By: JENNIFER Confirmed By:DR. Chinedu BHANDARI
== END 2019-01-12 13:48 | disposition home or self-care (01) ==
LOC: SDC 08:20 → SURG A 13:42
PROVIDERS: ADMIT Neurological Surgery; ATTEND Neurological Surgery
PROC: 0RG20A0 Fusion of 2 or more Cervical Vertebral Joints with Interbody Fusion Device, Anterior Approach, Anterior Column, Open Approach (ICD-10-PCS; principal; 2019-01-11)
PROC: 0RG2070 Fusion of 2 or more Cervical Vertebral Joints with Autologous Tissue Substitute, Anterior Approach, Anterior Column, Open Approach (ICD-10-PCS; 2019-01-11)
PROC: 0RG20J0 Fusion of 2 or more Cervical Vertebral Joints with Synthetic Substitute, Anterior Approach, Anterior Column, Open Approach (ICD-10-PCS; 2019-01-11)
PROC: 0RB30ZZ Excision of Cervical Vertebral Disc, Open Approach (ICD-10-PCS; 2019-01-11)
DX: M47.22 Other spondylosis with radiculopathy, cervical region (principal); M48.02 Spinal stenosis, cervical region; I10 Essential (primary) hypertension; I25.10 Atherosclerotic heart disease of native coronary artery without angina pectoris; E11.9 Type 2 diabetes mellitus without complications
CPT/HCPCS: 20930; 20936; 22551; 22552; 22845; 22853 ×2; 76000; 80048; 82962 ×2; 85025; 93005; 96361; 96365; 97139 ×2; C1713 ×2; C1776; G0378 ×2; 36415; 36416; 93010; J0690; J1100; J1815; J2001; J2405; J2704; J3010; J3490

== ENCOUNTER 2019-02-04 15:51 | Outpatient (CLI) | payer MEDICARE, MEDICAID ==
--- NOTE | 2019-02-04 16:58 | RAD ---
CERVICAL SPINE SERIES 3 VIEWS: Date: 02/04/19 HISTORY: Follow-up of surgery. FINDINGS: Patient has undergone anterior cervical fusion with plate and screws placed from C3-C6. Markers of im plants are seen to C3-4 and C5-6 levels. There is some mild prevertebral soft tissue swelling noted. IMPRESSION: Postoperative changes of the spine. POS: [facility]
== END 2019-02-04 15:52 | disposition home or self-care (01) ==
LOC: TBSIIMAG 15:51
PROVIDERS: ATTEND Neurological Surgery
DX: M54.12 Radiculopathy, cervical region (principal); Z98.890 Other specified postprocedural states
CPT/HCPCS: 72040

== ENCOUNTER 2019-02-26 10:54 | Observation (INO) | payer MEDICARE, MEDICAID ==
[2019-02-26 14:11] VITALS: BMI 32.9
[2019-02-26] MEDS ORDERED: Ondansetron PF 4 MG/2 ML Vial IVP PRN (14:43)
[2019-02-26] MEDS ORDERED: Acetaminophen 325 MG TAB PO PRN (14:43)
[2019-02-26] MEDS ORDERED: Ondansetron ODT 4 MG TAB SL PRN (14:43)
[2019-02-26] MEDS ORDERED: Senokot S 8.6-50 MG TAB PO PRN (14:43)
[2019-02-26] MEDS ORDERED: Nitroglycerin 0.4 MG TAB (25 Tab Bottle) SL PRN (14:49)
[2019-02-26] MEDS ORDERED: tiZANidine HCl 4 MG TAB PO PRN (14:49)
[2019-02-26] MEDS ORDERED: HYDROcodone/Acetaminophen 5/325 mg Tablet PO PRN (14:52)
[2019-02-26] MEDS ORDERED: HumaLOG 300 UNITS/3 ML VIAL SC PRN (14:57)
[2019-02-26] MEDS ORDERED: Dextrose 50% Abboject 50 ML SYRINGE SLOW IVP PRN (14:57)
[2019-02-26] MEDS ORDERED: Dextrose 5% in Water 1,000 ML IV PRN (14:57)
[2019-02-26 14:58] LABS: Troponin I Less than 0.010 ng/mL (< 0.028)
[2019-02-26] MEDS: HYDROcodone/Acetaminophen 5/325 mg Tablet PO PRN ×2 (15:29→20:09)
[2019-02-26] MEDS: hydrALAZINE 25 MG TAB PO SCH ×2 (15:30→20:10)
[2019-02-26] MEDS: Gabapentin 300 MG CAP PO SCH ×2 (15:30→20:10)
--- NOTE | 2019-02-26 17:35 | HP ---
PRIMARY CARE PHYSICIAN: Arabella Treadwell MD. CHIEF COMPLAINT: Chest pain. HISTORY OF PRESENT ILLNESS: Ms. Goodwin is a 53-year-old female, who reported to the emergency room in [place] today for intermittent chest pain since early this morning. She has a past medical history pertinent for CHF, diabetes, hypertension, depression, anxiety. ER notes from [place] reports that she has had 26 prior visits to the ER since 2013 for various complaints. She presented this morning for chest pain. She reports taking one nitroglycerin at home with some relief and then some transient shortness of breath. Denied any nausea, vomiting, palpitations. EKG in the emergency room shows normal sinus rhythm, beats per minute 68, flattened T-waves in V3, left ventricular hypertrophy. Chest x-ray was negative. Troponin x3 has been undetectable. The patient was sent to [facility] ER who then admitted the patient to the observation unit for further management. The patient denies current chest pain. REVIEW OF SYMPTOMS: The patient reports sore throat. Reports chest pain, currently resolved. Reports some shortness of breath, also currently resolved. Denies any abdominal pain, nausea, vomiting, diaphoresis, palpitations, dyspnea on exertion. All systems are reviewed and are negative unless mentioned in the HPI. PAST MEDICAL HISTORY: Pertinent for coronary artery disease, diabetes type 2, GERD, hyperlipidemia, hypertension. PAST SURGICAL HISTORY: Had lumbar surgery, cervical spine surgery, lipoma removal left leg, tubal ligation. PSYCHIATRIC HISTORY: Depression. SOCIAL HISTORY: Denies any alcohol use, drug use. Has no smoking history. Lives at home with family. KNOWN ALLERGIES: Dextromethorphan, NSAIDs. CURRENT MEDICATIONS: 1. Coreg 25 mg p.o. b.i.d. 2. Vitamin D 1000 units p.o. daily. 3. Lexapro 20 mg p.o. daily. 4. Pepcid 40 mg p.o. daily. 5. Iron 325 mg p.o. daily. 6. Gabapentin 600 mg p.o. t.i.d. 7. Hydralazine 50 mg p.o. t.i.d. 8. Lisinopril 10 mg p.o. b.i.d. 9. Metformin 850 mg p.o. b.i.d. 10. Nitroglycerin 0.4 mg sublingual as needed. 11. Pravastatin 40 mg p.o. at bedtime. 12. Tizanidine 4 mg q.6 hours as needed. 13. Ambien 5 mg p.o. at bedtime. 14. Aspirin 81 mg p.o. daily. 15. Plavix 75 mg p.o. daily. 16. Lasix 20 mg p.o. daily. PHYSICAL EXAMINATION: VITAL SIGNS: Blood pressure 146/70, pulse 67, respirations 14, pO2 sats are 99% on room air. CONSTITUTIONAL: The patient appears nontoxic. She is alert and oriented to person, place, and time. HEAD: Atraumatic and normocephalic. EYES: Pupils are equally round and reactive to light. Extraocular muscles are intact. ENT: Mouth exam is normal. Mucous membranes are moist. NECK: Normal range of motion. Trachea is midline. RESPIRATORY: Chest breath sounds are clear. Chest expansion is equal. CARDIOVASCULAR: Regular heart rate and rhythm. Heart sounds are normal. ABDOMEN: Nontender. Bowel sounds are heard. BACK: Normal inspection. No tenderness upper extremity. Normal inspection. Normal motor strength. Sensation intact. Radial pulses are normal. Lower extremity normal. Inspection, normal motor strength. Sensation intact. Pedal pulses are normal. No edema is noted. NEURO: The patient is oriented to person, place, and time. No focal motor or sensory deficits. SKIN: Warm, dry, and normal in color. PLAN AND ASSESSMENT: 1. Chest pain, indeterminate EKG with three troponins which have been undetectable. We will order a stress test in the morning. The patient has eaten this afternoon. Cardiology was consulted from the emergency room. With the patient's history, we would appreciate the recommendations. 2. Hyperlipidemia. We will check fasting lipids in the a.m. Restart home medications. 3. Anemia. The patient is on ferrous sulfate. We will continue this. The patient's hemoglobin and hematocrit appear stable. The patient denies symptoms of acute bleeding. 4. Hypertension. Restart home medications. Add p.r.n. medications as needed. 5. Congestive heart failure. The patient's chest x-ray and labs not indicative of acute exacerbation of congestive heart failure. We will restart Coreg and other medications. 6. Acute on chronic back pain. Restart the tizanidine. Add some Lortab as needed. 7. Gastrointestinal and DVT prophylaxis has been started. 8. Hospital course is dependent on clinical findings. Job ID: [id number]
[2019-02-26 17:43] LABS: Troponin I Less than 0.010 ng/mL (< 0.028)
[2019-02-26] MEDS: Carvedilol 25 MG TAB PO SCH (20:09)
[2019-02-26] MEDS: Famotidine 20 MG TAB PO SCH (20:09)
[2019-02-26] MEDS: Pravastatin Sodium 40 MG TAB PO SCH (20:09)
[2019-02-26] MEDS: Lisinopril 10 MG TAB PO SCH (20:09)
[2019-02-26] MEDS: Zolpidem Tartrate 5 MG TAB PO SCH (20:09)
[2019-02-27] MEDS: hydrALAZINE 25 MG TAB PO SCH ×3 (08:49→20:18)
[2019-02-27] MEDS: Carvedilol 25 MG TAB PO SCH ×2 (08:49→20:18)
[2019-02-27] MEDS: Lisinopril 10 MG TAB PO SCH ×2 (08:49→20:21)
[2019-02-27] MEDS ORDERED: FAMOTIDINE PO SCH (09:00)
[2019-02-27] MEDS: Famotidine 20 MG TAB PO SCH ×2 (11:08→20:18)
[2019-02-27] MEDS: Aspirin 81 mg Enteric Coated Tablet PO SCH (11:08)
[2019-02-27] MEDS: Escitalopram Oxalate 20 mg Tablet PO SCH (11:08)
[2019-02-27] MEDS: Clopidogrel Bisulfate 75 MG TAB PO SCH (11:08)
[2019-02-27] MEDS: Furosemide 20 MG TAB PO SCH (11:08)
[2019-02-27] MEDS: Gabapentin 300 MG CAP PO SCH ×3 (11:08→20:17)
[2019-02-27] MEDS: Enoxaparin Sodium 40 MG/0.4 ML SYRINGE SC SCH (11:09)
--- NOTE | 2019-02-27 11:40 | NM ---
MYOCARDIAL PERFUSION EVALUATION: CLINICAL HISTORY: Chest pain. RADIOPHARMACEUTICAL: 29.1 mCi and 10.6 mCi technetium 99 M sestamibi IV administered at stress and rest FINDINGS: Utilization of attenuation correction and nonattenuation correction imaging performed which does not reveal a significant fixed or reversible defect of the left ventricular martinez. Contractility and motion of the left ventricle with gated imaging is documented, although there is a reduced LVEF calcu lated at 47%. IMPRESSION: 1. No scintigraphic evidence of significant ischemia or scar on the left ventricular martinez. 2. Diminished left ventricular ejection fraction, 47%. As necessary, correlation with echocardiogram may be performed. Transcribed Date/Time: 02/27/2019 11:48 AM
[2019-02-27 11:59] LABS: ALT (SGPT) 10 U/L (8-55); AST (SGOT) 16 U/L (5-34); Albumin 3.9 g/dL (3.5-5.0); Alkaline Phosphatase 101 U/L (40-110); Anion Gap 18 mmol/L (10-20); BUN (Urea Nitrogen) 12 mg/dL (9.8-20.1); Bilirubin, Total 0.2 mg/dL (0.2-1.2); Calc. Creatinine Clearance 84 mL/min (70-130); Calcium 9.1 mg/dL (7.8-10.44); Carbon Dioxide 18 mmol/L (22-29); Cardiac Risk 2.7 (Less than 4.5); Chloride 107 mmol/L (98-107); Cholesterol 134 mg/dl (< 200 Desired); Estimated GFR-MDRD 61; Globulin 3.6 g/dL (2.4-3.5); Glucose 173 mg/dL (70-105); HDL Cholesterol 49 mg/dL (>60 Neg Risk); LDL Cholesterol, Calculated 75 mg/dL; Potassium 4.3 mmol/L (3.5-5.1); Protein, Total 7.5 g/dL (6.0-8.3); Sodium 139 mmol/L (136-145); Triglycerides 49 mg/dL (Less than 150)
[2019-02-27] MEDS ORDERED: ISOVUE-370 76%-LOCM 1 ML ONE (12:00)
[2019-02-27 13:19] LABS: #Eosinphils 0.2 thou/uL (0.0-0.7); #Lymphocytes 2.8 thou/uL (1.20-3.40); #Monocytes 0.4 thou/uL (0.11-0.59); #Neutrophils 3.7 thou/uL (1.40-6.50); %Basophils 0.1 % (0.0-1.0); %Eosinophils 2.8 % (0.0-10.0); %Lymphocytes 38.7 % (21.0-51.0); %Monocytes 5.7 % (0.0-10.0); %Neutrophils 52.7 % (42.0-75.0); Mean Corpuscular HGB CONC 31.4 g/dL (32.0-36.0); Mean Corpuscular Hemoglobin 26.5 pg (27.0-31.0); Mean Corpuscular Volume 84.6 fL (78.0-98.0); Platelet Count 159 thou/uL (130-400); Red Blood Cell (RBC) Count 4.13 mill/uL (4.20-5.40); White Blood Cell (WBC) Count 7.1 thou/uL (4.8-10.8)
[2019-02-27] MEDS ORDERED: Regadenoson 0.4 MG/5 ML SYRINGE ONE (13:20)
[2019-02-27 13:28] LABS: Anisocytosis SLIGHT = 6-15 cells (100X) (0-5/hpf); Hypochromia SLIGHT = 6-15 cells (100X) (0-5/hpf); MDiff Complete? YES; Ovalocytes SLIGHT = 2-5 cells (100X) (0-1/hpf); Platelet Morphology Comment Appears Adequate; Poikilocytosis SLIGHT = 6-15 cells (100X) (0-5/hpf); Polychromasia SLIGHT = 2-3 cells (100X) (0-2/hpf); Schistocytes SLIGHT = 2-5 cells (100X) (0-1/hpf); Target Cells SLIGHT = 2-5 cells (100X) (0-1/hpf)
[2019-02-27] MEDS: HYDROcodone/Acetaminophen 5/325 mg Tablet PO PRN (14:51)
[2019-02-27] MEDS ORDERED: FLU VACC QS2019-20(6MOS UP)/PF 60 MCG/0.5 ML SYRINGE IM ONE (15:15)
--- NOTE | 2019-02-27 17:10 | PDOC.HOSPP ---
- Subjective Encounter Date: 02/27/19 Encounter Time: 17:09 Subjective: Pt seen for followup re: chest pain. c/o retrosternal chest discomfort. No light-headedness. - Objective Vital Signs & Weight: Vital Signs (12 hours) Temp Pulse Resp BP BP Pulse Ox 02/27/19 15:05 98.6 F 80 16 110/67 98 02/27/19 14:51 75 120/56 L 02/27/19 11:30 97.7 F 75 20 120/56 L 96 02/27/19 08:49 74 102/59 L 02/27/19 07:00 98.1 F 74 20 102/59 L 96 Weight Weight 205 lb 1.6 oz I&O: 02/26/19 02/27/19 02/28/19 06:59 06:59 05:59 Intake Total 440 Output Total 0 Balance 440 Result Diagrams: 02/27/19 13:07 02/27/19 11:25 Additional Labs: Accuchecks 02/27/19 02/27/19 02/26/19 12:32 06:28 20:40 POC Glucose 105 108 100 labs and MARs reviewed by me EKG Reviewed by me: Yes (Tele; NSR) Hospitalist ROS - Review of Systems Cardiovascular: reports: chest pain. denies: palpitations, orthopnea, paroxysmal noc. dyspnea, edema, light headedness Gastrointestinal: denies: nausea, vomiting, abdominal pain, diarrhea, constipation, melena, hematochezia - Medication Medications: Active Medications Generic Name Dose Route Start Last Admin Trade Name Freq PRN Reason Stop Dose Admin Hydrocodone Bitart/Acetaminophen 1 tab 02/26/19 14:52 02/27/19 14:51 Pickerel 5/325 PO 1 tab Q4H PRN Administration Moderate Pain (4-6) Aspirin 81 mg 02/27/19 09:00 02/27/19 11:08 Ecotrin PO 81 mg DAILY [facility] Administration Carvedilol 25 mg 02/26/19 21:00 02/27/19 08:49 Coreg PO Not Given BID [facility] Clopidogrel Bisulfate 75 mg 02/27/19 09:00 02/27/19 11:08 Plavix PO 75 mg DAILY [facility] Administration Enoxaparin Sodium 40 mg 02/27/19 09:00 02/27/19 11:09 Lovenox SC 40 mg 0900 [facility] Administration Escitalopram Oxalate 20 mg 02/27/19 09:00 02/27/19 11:08 Lexapro PO 20 mg DAILY [facility] Administration Famotidine 20 mg 02/26/19 21:00 02/27/19 11:08 Pepcid PO 20 mg BID [facility] Administration Furosemide 20 mg 02/27/19 09:00 02/27/19 11:08 Lasix PO 20 mg DAILY [facility] Administration Gabapentin 600 mg 02/26/19 15:00 02/27/19 14:51 Neurontin PO 600 mg TID [facility] Administration Hydralazine HCl 50 mg 02/26/19 15:00 02/27/19 14:51 Apresoline PO 50 mg TID [facility] Administration Lisinopril 10 mg 02/26/19 21:00 02/27/19 08:49 Zestril PO Not Given BID [facility] Pravastatin Sodium 40 mg 02/26/19 21:00 02/26/19 20:09 Pravachol PO 40 mg HS [facility] Administration Zolpidem Tartrate 5 mg 02/26/19 21:00 02/26/19 20:09 Ambien PO 5 mg HS [facility] Administration - Exam General - other findings: Obese Eye: anicteric sclera ENT: moist mucosa Neck: supple Heart: RRR Respiratory: CTAB, no wheezes Gastrointestinal: soft, non-tender Extremities: no clubbing Neurological: cranial nerve grossly intact Musculoskeletal: normal tone Psychiatric: normal affect, normal behavior Hosp A/P (1) Chest pain Code(s): R07.9 - CHEST PAIN, UNSPECIFIED Status: Acute (2) DM2 (diabetes mellitus, type 2) Status: Chronic (3) Chronic systolic CHF (congestive heart failure), NYHA class 2 Code(s): I50.22 - CHRONIC SYSTOLIC (CONGESTIVE) HEART FAILURE Status: Chronic (4) HTN (hypertension) Code(s): I10 - ESSENTIAL (PRIMARY) HYPERTENSION Status: Chronic - Plan Stress test negative. d-dimer elevated. awaiting test. If negative, check CTA chest to r/o PE.
[2019-02-27 18:26] LABS: BHCG - Serum Negative (NEGATIVE); Pregs Control Background? CLEAR/WHITE (CLR/WHITE); Pregs Control Bar Appear? YES (CONTROL BAR)
--- NOTE | 2019-02-27 19:47 | CT ---
CT ANGIO OF CHEST PERFORMED WITH INTRAVENOUS CONTRAST ENHANCEMENT AND 3D RECONSTRUCTIONS: 02/27/19 HISTORY: Chest pain. Elevated D-dimer. The thyroid gland shows multiple nodules and is enlarged. The lungs are clear of any infiltrative process. No pleural effusions or pulmonary nodules are identi fied. No significant mediastinal or hilar adenopathy. The thoracic aorta is mildly tortuous. There is good pulmonary artery opacification obtained, there is no CT evidence for pulmonary embolus. Visualized liver parenchyma shows no focal findings. IMPRESSION: No CT evidence for pulmonary embolus. POS: [facility]
[2019-02-27] MEDS: Zolpidem Tartrate 5 MG TAB PO SCH (20:20)
[2019-02-27] MEDS: Pravastatin Sodium 40 MG TAB PO SCH (20:20)
[2019-02-28] MEDS: Enoxaparin Sodium 40 MG/0.4 ML SYRINGE SC SCH (08:07)
[2019-02-28] MEDS: Carvedilol 25 MG TAB PO SCH (08:07)
[2019-02-28] MEDS: Escitalopram Oxalate 20 mg Tablet PO SCH (08:07)
[2019-02-28] MEDS: Lisinopril 10 MG TAB PO SCH (08:07)
[2019-02-28] MEDS: Famotidine 20 MG TAB PO SCH (08:07)
[2019-02-28] MEDS: Gabapentin 300 MG CAP PO SCH (08:07)
[2019-02-28] MEDS: Clopidogrel Bisulfate 75 MG TAB PO SCH (08:08)
[2019-02-28] MEDS: Furosemide 20 MG TAB PO SCH (08:08)
[2019-02-28] MEDS: Aspirin 81 mg Enteric Coated Tablet PO SCH (08:08)
[2019-02-28] MEDS: hydrALAZINE 25 MG TAB PO SCH (08:09)
[2019-02-28] MEDS: HYDROcodone/Acetaminophen 5/325 mg Tablet PO PRN (08:12)
[2019-02-28 11:38] VITALS: BP 98/59; TEMP 98.9
--- NOTE | 2019-03-01 04:57 | DIS ---
DATE OF ADMISSION: 02/26/2019 DATE OF DISCHARGE: 02/28/2019 PRIMARY CARE PROVIDER: Arabella Treadwell MD DISCHARGE DIAGNOSES: 1. Chest pain. 2. Chest pain most likely secondary to musculoskeletal etiology. 3. Thyroid nodules. CONDITION OF PATIENT ON THE DAY OF DISCHARGE: Stable. I assessed Ms. Goodwin on the day of discharge. She denies any chest pain or shortness of breath. Vital signs are stable. S1 and S2 are heard, regular. Lungs are clear to auscultation bilaterally. DISCHARGE MEDICATIONS: No change was made to her pre-admission home medications as dictated by Ms. Gutierrez in her history and physical note dated February 26, 2019. FOLLOWUP APPOINTMENTS: The patient is advised to follow up with primary care provider in 3 to 5 days' time; Cardiology, Dr. Duque, in 2 weeks. HOSPITAL COURSE: Ms. Goodwin is a pleasant 53-year-old lady, who was admitted to [facility] on February 26, 2019, for chest pain. Nuclear stress test did not show any scintigraphic evidence of significant ischemia or scar on the left ventricular martinez. Left ventricular ejection fraction was 47%. It was 25% to 30% in November 2014. She is advised to follow up with Cardiology Service for the same. The patient had an elevated D-dimer. She underwent CT angiogram of the chest, which did not show any evidence of pulmonary embolism. She had multiple nodules in the enlarged thyroid gland. The patient reports that she is aware of this finding and had tests for the same. Many thanks for allowing me to participate in your patient's care. Please feel free to contact me with any questions or concerns. DISCHARGE DESTINATION: Home. Job ID: [id number]
--- NOTE | 2019-03-12 12:24 | STRESS ---
Acquisition Time: 2019-02-27 09:50:41 Total Exercise Time: 00:01:00 Test Indications: CHEST PAIN Medications: Protocol: LEXISCAN Max HR: 117 BPM 70% of Pred: 166 BPM Max BP: 122/064 mmHG Max Work Load: 1.0 METS THE PATIENT WAS INJECTED WITH LEXISCAN. SHE DID NOT DEVELOPE CHEST PAIN. THERE WAS NO SIGNIFICANT ST DEPRESSION. AWAIT NUCLEAR IMAGES FOR DEFINITIVE DIAGNOSIS. Confirmed by HERRERA YAP ([id number]), city editor IVON RODRIGUEZ ([id number]) on 03/12/2019 12:24:23 PM Referred By: KAVITA ROQUE Confirmed By:HERRERA YAP
== END 2019-02-28 13:29 | disposition home or self-care (01) ==
LOC: ERS 10:54 → 2SW 13:55
PROVIDERS: ADMIT Internal Medicine; ATTEND Internal Medicine
DX: R07.2 Precordial pain (principal); E04.2 Nontoxic multinodular goiter; R79.89 Other specified abnormal findings of blood chemistry; I11.0 Hypertensive heart disease with heart failure; I50.22 Chronic systolic (congestive) heart failure; F32.9 Major depressive disorder, single episode, unspecified; F41.9 Anxiety disorder, unspecified; E11.9 Type 2 diabetes mellitus without complications; I25.10 Atherosclerotic heart disease of native coronary artery without angina pectoris; K21.9 Gastro-esophageal reflux disease without esophagitis; E78.5 Hyperlipidemia, unspecified; D64.9 Anemia, unspecified; G89.29 Other chronic pain; M54.9 Dorsalgia, unspecified; Z79.02 Long term (current) use of antithrombotics/antiplatelets; Z79.82 Long term (current) use of aspirin; Z79.84 Long term (current) use of oral hypoglycemic drugs; Z79.899 Other long term (current) drug therapy
CPT/HCPCS: 71275; 78452; 80061; 82962 ×3; 84484; 84703; 85379; 90686; 90732; 93005; 93017; 96372 ×2; 97139; 99285; A9500; G0008; G0009; G0378 ×4; 36415; 36416; 80053; 84443; 85025; 90471; J1650; J2785; Q9966

== ENCOUNTER 2019-03-02 10:34 | Outpatient (CLI) | payer MEDICARE, MEDICAID | END 2019-03-02 10:35 | disposition home or self-care (01) | LOC: CTENTCT 10:34 | PROVIDERS: ATTEND Specialist | DX: J32.8 Other chronic sinusitis (principal) | CPT/HCPCS: 70486 ==

== ENCOUNTER 2019-03-16 13:48 | Outpatient (CLI) | payer MEDICARE, MEDICAID ==
--- NOTE | 2019-03-16 15:44 | MMO ---
Bilateral MAMMO Bilat Screen DDI+ALDA. CLINICAL HISTORY: Patient is 53 years old and is seen for screening. The patient has no family history of breast cancer. The patient has no personal history of cancer. VIEWS: The views performed were: bilateral craniocaudal with tomosynthesis and bilateral mediolateral oblique with tomosynthesis. FILMS COMPARED: The present examination has been compared to prior imaging studies performed at [facility] on 01/30/2010, 02/26/2011 and 03/24/2017. This study has been interpreted with the assistance of computer-aided detection. MAMMOGRAM FINDINGS: There are scattered fibroglandular densities. There are no suspicious masses, suspicious calcifications, or new areas of architectural distortion. IMPRESSION: THERE IS NO MAMMOGRAPHIC EVIDENCE OF MALIGNANCY. A ROUTINE FOLLOW-UP MAMMOGRAM IN 1 YEAR IS RECOMMENDED. THE RESULTS OF THIS EXAM WERE SENT TO THE PATIENT. ACR BI-RADS Category 1 - Negative MAMMOGRAPHY NOTE: 1. A negative mammogram report should not delay a biopsy if a dominant of clinically suspicious mass is present. 2. Approximately 10% to 15% of breast cancers are not detected by mammography. 3. Adenosis and dense breasts may obscure an underlying neoplasm. Reported by: DEONTE STOCKTON MD Electonically Signed: [id number]
== END 2019-03-16 13:49 | disposition home or self-care (01) ==
LOC: BICMAMMO 13:48
PROVIDERS: ATTEND Family Medicine
DX: Z12.31 Encounter for screening mammogram for malignant neoplasm of breast (principal)
CPT/HCPCS: 77063; 77067

== ENCOUNTER 2019-03-16 14:55 | Outpatient (CLI) | payer MEDICARE, MEDICAID ==
--- NOTE | 2019-03-16 16:11 | RAD ---
Exam: 4 views cervical spine HISTORY: Neck pain COMPARISON: 02/04/2019 FINDINGS: Anterior fusion plate with transvertebral body screw at C3, C4, C5 and C6. No perihardware lucency. Stable prosthesis at C3-C4 and C5-C6. Stable moderate degenerative change at C4-C5. No prevertebral soft tissue swelling. Predental space is normal Stable osteophyte formation at C3 C6-C7. Limited evaluate odontoid process on the open-mouth views On the AP projection, no malalignment. IMPRESSION: Uncomplicated cervical fusion. No significant change.
== END 2019-03-16 14:56 | disposition home or self-care (01) ==
LOC: TBSIIMAG 14:55
PROVIDERS: ATTEND Neurological Surgery
DX: M54.2 Cervicalgia (principal); Z98.1 Arthrodesis status
CPT/HCPCS: 72040

== ENCOUNTER 2019-06-10 09:56 | Outpatient (CLI) | payer MEDICARE, MEDICAID ==
--- NOTE | 2019-06-10 10:23 | RAD ---
CERVICAL SPINE SERIES 3 VIEWS: HISTORY: Followup surgery. COMPARISON: 03/16/2018 study. FINDINGS: Stable postop changes are noted. Anterior cervical fusion from C3 to C6 are again demonstrated. Tasneem te and screws, no interval change. IMPRESSION: Stable postop change. POS: [facility]
== END 2019-06-10 09:57 | disposition home or self-care (01) ==
LOC: TBSIIMAG 09:56
PROVIDERS: ATTEND Neurological Surgery
DX: M54.12 Radiculopathy, cervical region (principal); Z98.890 Other specified postprocedural states
CPT/HCPCS: 72040

== ENCOUNTER 2019-06-23 07:16 | Day surgery (SDC) | payer MEDICARE, MEDICAID ==
[2019-06-22 12:36] VITALS: BMI 31.4
--- NOTE | 2019-06-23 09:10 | RAD ---
LUMBAR MYELOGRAM: HISTORY: Low back pain. Previous lumbar fusion. Lumbar radiculopathy. EXPOSURE 1.3 minutes. 626.3 mGy*^m2. FINDINGS: Two-view lumbar spine service dispatcher radiograph demonstrates 5 lumbar-type vertebrae. Unilateral right-sided t ranspedicular screw at L3 and L4. Associated L3-L4 disc prosthesis. Moderate right-sided posterior element hypertrophy at L4-L5. Visualized sacrum and bony pelvis are intact. On the lateral projection, 3.5 mm of retrolisthesis of L2 upon L3 and 2.8 mm of retrolisthesis of L3 upon L4. Successful lumbar puncture for intrathecal contrast administration. A total of 9 cc of Isovue-M 200 c ontrast was administered intrathecally at the L2-L3 disc space. TECHNIQUE: Consent was obtained to perform a lumbar myelogram. The patient's back was evaluated. The L2-L3 level was deemed appropriate. Skin was prepped and draped in a sterile fashion. 1% lidocaine, buffered with sodium bicarbonate was used for local anesthesia. Under fluoroscopic guidance, a 22-gauge spinal needle was advanced into the CSF space. There is prompt flow of clear CSF into the hub of the needle. Via a short tubing catheter, a total of 9 cc of Isovue-M 200 contrast was administered intrat hecally. Patient tolerated the procedure well. No immediate or postprocedural complications. IMPRESSION: Successful lumbar puncture for lumbar myelogram. Transcribed Date/Time: 06/23/2019 9:17 AM
--- NOTE | 2019-06-23 09:34 | CT ---
Exam: POSTMYELOGRAM LUMBAR SPINE CT: HISTORY: Lumbar fusion. Low back pain. Lumbar radiculopathy. FINDINGS: No paraspinal mass, lymphadenopathy or hematoma. Visualized aorta has a normal caliber. Visualized solid organs are unremarkable. Calcified uterine leiomyoma suspected, incompletely evaluated. Minimal sigmoid colon diverticulosis, incompletely evaluated. There are 5 lumbar type vertebra. Lumbar spine vertebral body height is maintained. No fracture. No s pondylolisthesis. No spondylolysis. Unilateral right-sided transpedicular screw at L3 and L4. No perihardware lucency. The L3 screw exten ds beyond the right margin of the vertebral body and terminates in the right paraspinal tissues. L3-L4 disc prosthesis is noted. Hypertrophic changes in the posterior elements from L2-L3 through L4- L5 are identified. Conus medullaris terminates at the mid L1 level. T11-T12 and T12-L1: No significant central canal stenosis or significant neural foraminal narrowing. L1-L2: No significant central canal stenosis or significant neural foraminal narrowing. L2-L3: No significant central canal stenosis. Moderate right neural foraminal narrowing due to facet hypertrophy. Mild left foraminal narrowing due to facet hypertrophy. L3-L4: Disc prosthesis. No significant central canal stenosis. There is bilateral facet hypertrophy. There is moderate to severe right neural foraminal narrowing. Moderate left foraminal narrowing. L4-L5: Broad-based disc bulge abuts the thecal sac. There is encroachment upon both subarticular zone s. Mass effect without obscuration of bilateral traversing L5 nerve root secondary to disc material as well as facet hypertrophy. There is right greater than left facet hypertrophy. Moderate to severe right and moderate left neural foraminal narrowing. L5-S1: No significant central canal stenosis or significant neural foraminal narrowing. Vacuum joint phenomenon in the right sacroiliac joint is noted. There is no presacral fat abnormality. Sacral ala are preserved. IMPRESSION: 1. Unilateral right-sided transpedicular screws at L3 and L4. Screw position as described above. Ther e is an associated disc prosthesis. 2. Posterior element hypertrophy involving the lumbar spine as described above. Throughout the lumbar spine, there is no significant central canal stenosis. There are varying degrees of neural foraminal stenosis as detailed above. Transcribed Date/Time: 06/23/2019 9:45 AM
[2019-06-23] MEDS ORDERED: Iopamidol-M 200 41% 20 ML VIAL ONE (14:32)
== END 2019-06-23 09:55 | disposition home or self-care (01) ==
LOC: RAD 07:16
PROVIDERS: ATTEND Neurological Surgery
DX: M54.16 Radiculopathy, lumbar region (principal); M48.061 Spinal stenosis, lumbar region without neurogenic claudication; E11.9 Type 2 diabetes mellitus without complications; I11.0 Hypertensive heart disease with heart failure; I50.9 Heart failure, unspecified; I25.10 Atherosclerotic heart disease of native coronary artery without angina pectoris; E78.5 Hyperlipidemia, unspecified; F41.9 Anxiety disorder, unspecified; F32.9 Major depressive disorder, single episode, unspecified
CPT/HCPCS: 62304; 72132; Q9966

== ENCOUNTER 2019-09-09 05:52 | Outpatient (CLI) | payer MEDICARE, MEDICAID, OTHER ==
[2019-09-09 11:16] LABS: #Basophils 0.1 thou/uL (0.0-0.2); #Eosinphils 0.2 thou/uL (0.0-0.7); #Monocytes 0.3 thou/uL (0.11-0.59); #Neutrophils 3.2 thou/uL (1.40-6.50); %Basophils 0.7 % (0.0-1.0); %Lymphocytes 43.8 % (21.0-51.0); %Monocytes 4.6 % (0.0-10.0); %Neutrophils 47.8 % (42.0-75.0); Mean Corpuscular HGB CONC 30.9 g/dL (32.0-36.0); Mean Corpuscular Volume 90.7 fL (78.0-98.0); Mean Platelet Volume 7.9 fL (7.4-10.4); Platelet Count 188 thou/uL (130-400); RBC Distribution Width 13.8 % (11.5-14.5); Red Blood Cell (RBC) Count 3.93 mill/uL (4.20-5.40); White Blood Cell (WBC) Count 6.8 thou/uL (4.8-10.8)
[2019-09-09 11:29] LABS: Anion Gap 13 mmol/L (10-20); BUN (Urea Nitrogen) 10 mg/dL (9.8-20.1); Calc. Creatinine Clearance 83 mL/min (70-130); Calcium 9.6 mg/dL (7.8-10.44); Carbon Dioxide 22 mmol/L (22-29); Chloride 106 mmol/L (98-107); Estimated GFR-MDRD 66; Glucose 92 mg/dL (70-105); Potassium 4.3 mmol/L (3.5-5.1); Sodium 137 mmol/L (136-145)
--- NOTE | 2019-09-09 17:37 | EKG ---
Test Reason : Blood Pressure : / mmHG Vent. Rate : 062 BPM Atrial Rate : 062 BPM P-R Int : 172 ms QRS Dur : 090 ms QT Int : 394 ms P-R-T Axes : 071 046 045 degrees QTc Int : 399 ms Normal sinus rhythm Normal ECG When compared with ECG of 26-FEB-2019 11:01, No significant change was found Confirmed by TOM ANDRES, DR. Duarte ([id number]) on 09/09/2019 5:36:59 PM Referred By: JENNIFER Confirmed By:DR. Gerald SANTOS MD
[2019-09-09 18:35] LABS: SARS-CoV-2 MS2 Positive; SARS-CoV-2 N Gene Negative; SARS-CoV-2 S Gene Negative; SARS-CoV-2 orf1ab Negative
== END 2019-09-09 05:53 | disposition home or self-care (01) ==
LOC: LABBT 05:52
PROVIDERS: ATTEND Neurological Surgery
DX: Z01.818 Encounter for other preprocedural examination (principal); Z11.59 Encounter for screening for other viral diseases; M43.16 Spondylolisthesis, lumbar region
CPT/HCPCS: 80048; 85025; 93005; U0003; 87635; 93010

== ENCOUNTER 2019-09-09 09:00 | Inpatient (IN) | payer MEDICARE, MEDICAID ==
[2019-09-13] MEDS ORDERED: Fentanyl 250 MCG/5 ML VIAL ONE (06:32)
[2019-09-13] MEDS ORDERED: Lidocaine 4% Topical Sol 50 ML BOT ONE (06:32)
--- NOTE | 2019-09-13 08:49 | OP ---
DATE OF PROCEDURE: 09/13/2019 STRUCTURAL METAL FABRICATOR APPRENTICE: Mayuri Moran PA-C PROCEDURES PERFORMED: Exploration of spinal fusion, L3-4; removal of hardware, L3-4; right L4-5 laminectomy, facetectomy, foraminotomy, posterolateral arthrodesis, pedicle screw instrumentation; demineralized bone matrix; local morselized autograft L3 through L5. DESCRIPTION OF PROCEDURE: The patient was brought to the operating room and intubated. She was rolled in a prone position on gel-filled chest rolls. Previous incision was opened and extended, and L3 through L5 were identified. We removed the previous nuts and rods at L3-4, explored the spinal fusion, and could not be confirmed that this was solidly healed. We replaced the L3 screw with a more medial trajectory using lateral fluoroscopic guidance. We then performed a right L4-5 laminectomy, facetectomy, and foraminotomy, completely decompressed right L4. Pedicle screws were then placed at right L5 and a froilan was secured between L3, L4, and L5, connected by nuts, which were final tightened. The wound was then extensively irrigated and MAC hemostasis was secured. The lamina on posterolateral surfaces from L3 through L5 were prepared for the purpose of arthrodesis and a combination of demineralized bone matrix and local morselized autograft was laid over the lamina on posterolateral surfaces for the purpose of arthrodesis. Vancomycin powder was applied and the wound was then closed in anatomic layers. Job ID: [id number]
[2019-09-13] MEDS ORDERED: Fentanyl 100 MCG/2 ML VIAL ONE ×2 (08:50→09:35)
[2019-09-13 10:26] VITALS: BMI 30.7
[2019-09-13] MEDS ORDERED: Rocuronium Bromide 10 MG/ML (10ML VIAL) ONE (10:31)
[2019-09-13] MEDS ORDERED: Ketorolac Tromethamine 30 MG/ML VIAL ONE (10:31)
[2019-09-13] MEDS ORDERED: PROPOFOL 200 MG/20 ML VIAL ONE (10:31)
[2019-09-13] MEDS ORDERED: PHENYLEPHRINE-NS 100 MCG/ML 10 ML SYRINGE ONE (10:31)
[2019-09-13] MEDS ORDERED: Ondansetron PF 4 MG/2 ML Vial ONE (10:31)
[2019-09-13] MEDS ORDERED: Glycopyrrolate 0.2 MG/ML 5 ML SYRINGE ONE (10:31)
[2019-09-13] MEDS ORDERED: EPHEDRINE 25 MG/5 ML SYRINGE ONE (10:31)
[2019-09-13] MEDS ORDERED: Dexamethasone 20 MG/5 ML VIAL ONE (10:31)
[2019-09-13] MEDS ORDERED: Lidocaine 1% PF 5 ML VIAL ONE (10:31)
[2019-09-13] MEDS ORDERED: Promethazine HCl 12.5 MG SUPP PR PRN (11:09)
[2019-09-13] MEDS ORDERED: Promethazine HCl 25 MG/ML VIAL IM PRN (11:09)
[2019-09-13] MEDS ORDERED: diphenhydrAMINE 50 MG/ML VIAL IVP PRN (11:09)
[2019-09-13] MEDS ORDERED: diphenhydrAMINE 25 MG CAP PO PRN (11:09)
[2019-09-13] MEDS ORDERED: Milk Of Magnesia 30 ML UDCUP PO PRN (11:09)
[2019-09-13] MEDS ORDERED: HYDROcodone/Acetaminophen 10/325 mg Tablet PO PRN (11:09)
[2019-09-13] MEDS ORDERED: traMADol HCl 50 MG TAB PO PRN ×2 (11:09)
[2019-09-13] MEDS ORDERED: Promethazine 25 MG TAB PO PRN (11:09)
[2019-09-13] MEDS ORDERED: Mag-Al 1200 mg/1200 mg/30 ML UDCUP PO PRN (11:09)
[2019-09-13] MEDS ORDERED: tiZANidine HCl 4 MG TAB PO PRN (11:09)
[2019-09-13] MEDS ORDERED: Ondansetron PF 4 MG/2 ML Vial IM PRN (11:11)
[2019-09-13] MEDS ORDERED: Zolpidem Tartrate 5 MG TAB PO PRN (11:16)
[2019-09-13] MEDS ORDERED: Nitroglycerin 0.4 MG TAB (25 Tab Bottle) SL PRN (11:16)
[2019-09-13] MEDS: Morphine 2 MG/ML SYRINGE SLOW IVP PRN (11:19)
[2019-09-13 13:18] LABS: #Neutrophils 5.8 thou/uL (1.40-6.50); %Basophils 0.2 % (0.0-1.0); %Eosinophils 0.1 % (0.0-10.0); %Lymphocytes 14.7 % (21.0-51.0); %Monocytes 0.5 % (0.0-10.0); %Neutrophils 84.5 % (42.0-75.0); Hemoglobin 10.3 g/dL (12.0-16.0); Mean Corpuscular HGB CONC 30.7 g/dL (32.0-36.0); Mean Platelet Volume 7.9 fL (7.4-10.4); Platelet Count 164 thou/uL (130-400); RBC Distribution Width 13.7 % (11.5-14.5); Red Blood Cell (RBC) Count 3.67 mill/uL (4.20-5.40); White Blood Cell (WBC) Count 6.9 thou/uL (4.8-10.8)
[2019-09-13] MEDS: HYDROcodone/Acetaminophen 10/325 mg Tablet PO PRN ×2 (13:27→18:09)
[2019-09-13 13:41] LABS: Anion Gap 15 mmol/L (10-20); BUN (Urea Nitrogen) 16 mg/dL (9.8-20.1); Calc. Creatinine Clearance 61 mL/min (70-130); Calcium 8.6 mg/dL (7.8-10.44); Carbon Dioxide 22 mmol/L (22-29); Chloride 103 mmol/L (98-107); Estimated GFR-MDRD 46; Glucose 247 mg/dL (70-105); Potassium 4.3 mmol/L (3.5-5.1); Sodium 136 mmol/L (136-145)
[2019-09-13] MEDS: Sodium Chloride 0.9% 1,000 ML IV SCH (14:53)
[2019-09-13] MEDS: CEFAZOLIN 2 GM in Premix Bag 1 BAG IVPB SCH ×2 (15:21→23:05)
[2019-09-13] MEDS: hydrALAZINE 25 MG TAB PO SCH ×2 (15:21→20:05)
[2019-09-13] MEDS ORDERED: hydrALAZINE 20 MG/ML VIAL SLOW IVP PRN (15:44)
[2019-09-13] MEDS ORDERED: Dextrose 50% Abboject 50 ML SYRINGE IVP PRN (16:11)
[2019-09-13] MEDS ORDERED: Dextrose 5% in Water 1,000 ML IV PRN (16:11)
--- NOTE | 2019-09-13 16:36 | CON ---
DATE OF CONSULTATION: REASON FOR CONSULTATION: Consult for medical management. Status post laminectomy. HISTORY OF PRESENT ILLNESS: A 53-year-old female with medical history of hypertension, cardiomyopathy, hyperlipidemia, has undergone elective laminectomy with exploration of spinal infusion including L3-L4 removal of hardware, right L4-L5 laminectomy, foraminectomy, and pedicle screw instrumentation and local morselized autograft at L3-L5. Post-procedure, She is resting comfortably. REVIEW OF SYSTEMS: A 13-point reviewed. They are negative unless addressed in the history of present illness. The patient did not have any fever, night sweats, chills, or productive cough prior to hospitalization. ALLERGIES: SHE HAS NO KNOWN DRUG ALLERGY. PAST MEDICAL HISTORY: Coronary artery disease, type 2 diabetes mellitus, GERD, hyperlipidemia, hypertension. PAST SURGICAL HISTORY: Lumbar surgery, cervical spine surgery, lipoma removal, tubal ligation. SOCIAL HISTORY: No alcohol or smoking history. She lives at home with family. MEDICATIONS: 1. Metformin 850 twice a day. 2. Hydralazine 50 mg three times a day. 3. Lisinopril 10 mg twice a day. 4. Lasix 20 mg daily. 5. Famotidine 1 tablet daily. 6. Coreg 25 mg twice a day. 7. Crestor 20 mg at bedtime. 8. Plavix 75 mg daily. 9. Aspirin 81 mg daily. FAMILY HISTORY: Significant for coronary artery disease. PHYSICAL EXAMINATION: VITAL SIGNS: Temperature 97.9, pulse 70, blood pressure 151/80, saturating 100 % on the 2 L oxygen by nasal cannula. GENERAL: She looks fatigued, but alert, oriented. CARDIOVASCULAR: Regular rate and rhythm without murmurs, rubs, or gallops. LUNGS: Clear to auscultation bilaterally without wheezing, rales, or rhonchi. ABDOMEN: Soft, nontender, nondistended. Good bowel sounds. EXTREMITIES: Without any pitting edema. IMPRESSION AND PLAN: 1. This is a 53-year-old female, undergone elective L4-L5 laminectomy. 2. Ischemic cardiomyopathy with EF of 45% based on February 2019 study. 3. Coronary artery disease. 4. Hypertension. 5. Hyperlipidemia. 6. Thyroid nodule with last TSH of 0.4 in February 2019. 7. We will follow her closely for medical management. Type 2 diabetes mellitus , her last A1c is 6.5 in June 2019. We will initiate the sliding scale along with continuing her home regimen of metformin. Diabetic diet. 8. Hypertension. Continue with home regimen of lisinopril, hydralazine and Coreg. 9. Hyperlipidemia. Continue with Crestor. 10. Ischemic cardiomyopathy with EF of 45%. The patient is taking diuretics. Continue Lasix, home regimen, and will follow her renal panel closely. 11. Hold aspirin and Plavix for now. 12. Deep venous thrombosis prophylaxis with SCDs. Thank you for the consult. I will follow her closely during her stay. Job ID: [id number] CHASE
[2019-09-13] MEDS: metFORMIN 850 MG TAB PO SCH (16:38)
[2019-09-13] MEDS: HumaLOG 300 UNITS/3 ML VIAL SC PRN (16:39)
[2019-09-13] MEDS ORDERED: Rosuvastatin 20 MG TAB PO SCH (21:00)
[2019-09-13] MEDS: Carvedilol 25 MG TAB PO SCH (21:29)
[2019-09-13] MEDS: Lisinopril 10 MG TAB PO SCH (21:29)
[2019-09-14] MEDS: Morphine 2 MG/ML SYRINGE SLOW IVP PRN (02:35)
[2019-09-14] MEDS: Sodium Chloride 0.9% 1,000 ML IV SCH (04:12)
[2019-09-14 06:03] LABS: #Lymphocytes 2.2 thou/uL (1.20-3.40); #Monocytes 0.4 thou/uL (0.11-0.59); #Neutrophils 8.1 thou/uL (1.40-6.50); %Lymphocytes 20.3 % (21.0-51.0); %Monocytes 4.1 % (0.0-10.0); %Neutrophils 75.6 % (42.0-75.0); Hemoglobin 9.6 g/dL (12.0-16.0); Mean Corpuscular HGB CONC 31.6 g/dL (32.0-36.0); Mean Corpuscular Hemoglobin 28.9 pg (27.0-31.0); Mean Corpuscular Volume 91.5 fL (78.0-98.0); Mean Platelet Volume 8.2 fL (7.4-10.4); Platelet Count 167 thou/uL (130-400); RBC Distribution Width 13.6 % (11.5-14.5); Red Blood Cell (RBC) Count 3.33 mill/uL (4.20-5.40); White Blood Cell (WBC) Count 10.7 thou/uL (4.8-10.8)
[2019-09-14 07:24] VITALS: TEMP 97.8
[2019-09-14] MEDS: metFORMIN 850 MG TAB PO SCH (08:10)
[2019-09-14] MEDS: Carvedilol 25 MG TAB PO SCH (08:11)
[2019-09-14] MEDS: Lisinopril 10 MG TAB PO SCH (08:12)
[2019-09-14] MEDS: hydrALAZINE 25 MG TAB PO SCH (08:12)
[2019-09-14] MEDS ORDERED: Furosemide 20 MG TAB PO SCH (09:00)
[2019-09-14] MEDS ORDERED: Escitalopram Oxalate 20 mg Tablet PO SCH (09:00)
[2019-09-14] MEDS ORDERED: Famotidine 20 MG TAB PO SCH (09:00)
[2019-09-14] MEDS: HumaLOG 300 UNITS/3 ML VIAL SC PRN (11:23)
[2019-09-14 11:41] VITALS: BP 109/73
--- NOTE | 2019-09-14 14:11 | DIS ---
DATE OF ADMISSION: 09/13/2019 DATE OF DISCHARGE: 09/14/2019 HOSPITAL COURSE: The patient is a 53-year-old female, who was recently evaluated in our office for progressive back pain. She was found to have increased degenerative changes below her prior fusion. She underwent L4-L5 extension of her lumbar fusion and removal of hardware. The right-sided L3 screw was also replaced with a larger diameter screw. Following the surgery, she was transitioned to the Med/Surg floor, where her pain was well controlled with p.o. medications, she was tolerating a regular diet. Initially, she had some urinary retention and required I and O cath x1. She is now urinating without difficulty. She has ambulated short distances with her walker in the hallway. Exam on postoperative day 1, the patient awake and alert, in no acute distress. She has free active range of motion of all extremities. No focal motor weakness. Sensation is intact to light touch. Her incision is clean, dry, and intact. We will plan to dismiss the patient to home. I have discussed home care precautions. We will follow up in 2 weeks. Scripts for Matador and Zanaflex and Keflex were given. ANIMATION DIRECTOR checked prior to discharge. Job ID: [id number]
== END 2019-09-14 11:49 | disposition home or self-care (01) | DRG 460 ==
LOC: SURG A 09-13 05:33
PROVIDERS: ADMIT Neurological Surgery; ATTEND Neurological Surgery
PROC: 0SG1071 Fusion of 2 or more Lumbar Vertebral Joints with Autologous Tissue Substitute, Posterior Approach, Posterior Column, Open Approach (ICD-10-PCS; principal; 2019-09-13)
PROC: 0SP004Z Removal of Internal Fixation Device from Lumbar Vertebral Joint, Open Approach (ICD-10-PCS; 2019-09-13)
DX: M47.816 Spondylosis without myelopathy or radiculopathy, lumbar region (principal); Z20.828 Contact with and (suspected) exposure to other viral communicable diseases; E78.5 Hyperlipidemia, unspecified; I25.10 Atherosclerotic heart disease of native coronary artery without angina pectoris; K21.9 Gastro-esophageal reflux disease without esophagitis; E11.9 Type 2 diabetes mellitus without complications; I25.5 Ischemic cardiomyopathy; E04.1 Nontoxic single thyroid nodule; I50.9 Heart failure, unspecified; I11.0 Hypertensive heart disease with heart failure; R33.9 Retention of urine, unspecified; Z98.51 Tubal ligation status; Z79.899 Other long term (current) drug therapy; Z79.84 Long term (current) use of oral hypoglycemic drugs; Z79.82 Long term (current) use of aspirin; Z79.02 Long term (current) use of antithrombotics/antiplatelets
CPT/HCPCS: 36415; 36416; 76000; 80048; 85025; C1713; C1768; J0690; J1100; J1885; J2001; J2270; J2405; J2704; J3010; J3370

== ENCOUNTER 2019-09-28 12:30 | Outpatient (CLI) | payer MEDICARE, MEDICAID, OTHER ==
--- NOTE | 2019-09-28 12:48 | RAD ---
RADIOGRAPH LUMBAR SPINE 3 VIEWS: DATE: 09/28/2019 HISTORY: 53-year-old female with lumbar spondylolisthesis. COMPARISON: Safety Tech radiograph for myelogram of 06/23/2019 FINDINGS: 5 lumbar-type vertebrae. Vertebral body heights are maintained. Mild left-convex lateral curvature ce ntered at L1 2-3. Previously, there were unilateral right pedicle screws at L3 and L4, and metallic markers for interbody cage at midline and right side of L3-4 disc space. There are endplate marginal osteophytes at this level, but no signs of bony bridging between the endplates. Those remain, but there is now a new right pedicle screw at L5, connected to the other right pedicle screws with a new interlocking froilan. There appears to be a slightly greater degree of anterior disc space narrowing, mild to moderate, at L4-5. No major spondylolisthesis. Bilateral facet DJD at L4-5. IMPRESSION: 1. Unilateral right pedicle screws at L3, L4, and L5. 2. Interbody cage at L3-4. 3. Moderate degenerative disc disease at L3-4 and L4-5.
== END 2019-09-28 12:31 | disposition home or self-care (01) ==
LOC: TBSIIMAG 12:30
PROVIDERS: ATTEND Neurological Surgery
DX: M43.16 Spondylolisthesis, lumbar region (principal); M51.36 Other intervertebral disc degeneration, lumbar region
CPT/HCPCS: 72100

== ENCOUNTER 2019-11-01 20:54 | Inpatient (IN) | payer MEDICARE, MEDICAID, OTHER ==
[2019-11-02 00:11] VITALS: BMI 30.5
[2019-11-02] MEDS ORDERED: Ondansetron ODT 4 MG TAB PO PRN (00:49)
[2019-11-02] MEDS ORDERED: Acetaminophen 325 MG TAB PO PRN (00:49)
[2019-11-02] MEDS ORDERED: Ondansetron PF 4 MG/2 ML Vial IVP PRN (00:49)
[2019-11-02] MEDS ORDERED: Dextrose 50% Abboject 50 ML SYRINGE SLOW IVP PRN (00:58)
[2019-11-02] MEDS ORDERED: HumaLOG 300 UNITS/3 ML VIAL SC PRN ×2 (00:58)
[2019-11-02] MEDS ORDERED: Dextrose 5% in Water 1,000 ML IV PRN (00:58)
[2019-11-02] MEDS ORDERED: Sodium Chloride 0.9% 1,000 ML IV SCH (01:00)
[2019-11-02 01:21] LABS: #Basophils 0.1 thou/uL (0.0-0.2); #Eosinphils 0.2 thou/uL (0.0-0.7); #Lymphocytes 4.3 thou/uL (1.20-3.40); #Monocytes 0.5 thou/uL (0.11-0.59); #Neutrophils 4.1 thou/uL (1.40-6.50); %Basophils 0.9 % (0.0-1.0); %Eosinophils 2.6 % (0.0-10.0); %Lymphocytes 46.7 % (21.0-51.0); %Monocytes 5.6 % (0.0-10.0); %Neutrophils 44.4 % (42.0-75.0); Hemoglobin 9.7 g/dL (12.0-16.0); Mean Corpuscular HGB CONC 31.3 g/dL (32.0-36.0); Mean Corpuscular Hemoglobin 28.4 pg (27.0-31.0); Mean Corpuscular Volume 90.4 fL (78.0-98.0); Mean Platelet Volume 7.6 fL (7.4-10.4); Platelet Count 201 thou/uL (130-400); Red Blood Cell (RBC) Count 3.41 mill/uL (4.20-5.40); White Blood Cell (WBC) Count 9.2 thou/uL (4.8-10.8)
[2019-11-02] MEDS: Morphine 4 MG/ML VIAL SLOW IVP PRN ×5 (01:41→20:01)
--- NOTE | 2019-11-02 01:43 | HP ---
PRIMARY CARE PHYSICIAN: Dr. Treadwell. CHIEF COMPLAINT: Acute Pancreatitis, transfer from [place]. HISTORY OF PRESENT ILLNESS: The patient is a 53-year-old female with a past medical history significant for CHF, hypertension, hyperlipidemia, renal stones, diabetes 2, chronic kidney disease stage 3, who presents to the [place] [facility] for the above complaint. The patient reports the development of urinary symptoms over the past several days. She reports dysuria, frequency, and urgency along with some right low back pain. She describes the back pain is dull and aching, increasing in intensity over the past several days. pain scale 10/10. She denies any hematuria or vaginal discharge. She denies any nausea, vomiting, or diarrhea. She denies any recent fever or chills. The patient reports that she did have an echocardiogram by her senior software quality engineer, Dr. Duque this afternoon and does not know the results. She denies any chest pain, heart palpitations, lower extremity swelling, shortness of breath or cough. At the [place] [facility], the patient was afebrile, hypertensive 162/70, normal pulse, normal respirations, normal O2 saturation, 10/[address] of the abdomen showed pleural effusions with atelectasis, lipase of 119, lactic acid of 1.5, creatinine of 1.18. UA had ketones. The patient was given 2 L normal saline and morphine 8 mg and transferred to the [facility] as a direct admit. PAST MEDICAL HISTORY: 1. CHF. 2. Hypertension. 3. Hyperlipidemia. 4. Diabetes 2. 5. Renal stones. 6. GERD. 7. Apnea. 8. Chronic kidney disease 3. 9. Anxiety and depression. PAST SURGICAL HISTORY: 1. Neck surgery. 2. Low back surgery. 3. Tubal. SOCIAL HISTORY: The patient lives with her family at home. She is on disability and ambulates without any assistive devices. She is a former smoker. Quit 5 years ago. Does not drink any alcohol. Does not use any illicit drugs. FAMILY HISTORY: Contributory for cardiac disease. ALLERGIES: 1. NSAIDS. 2. DEXTROMETHORPHAN. HOME MEDICATIONS: 1. Carvedilol 25 mg p.o. b.i.d. 2. Hydralazine 50 mg p.o. t.i.d. 3. Lasix 20 mg p.o. q.a.m. 4. Lisinopril 10 mg p.o. b.i.d. 5. Plavix 75 mg p.o. daily. 6. Aspirin 81 mg p.o. daily. 7. Metformin 500 mg p.o. b.i.d. 8. Ambien 5 mg p.o. at bedtime. 9. Tizanidine unknown dose p.r.n. 10. Rosuvastatin, unknown dose. 11. Famotidine 40 mg p.o. daily. 12. Lexapro 10 mg p.o. daily. REVIEW OF SYSTEMS: All review of systems are negative unless otherwise stated in the HPI. PHYSICAL EXAMINATION: VITAL SIGNS: Temperature 98.4, blood pressure 162/70, pulse 84, respirations 18 , 100% SpO2. Pain currently 0/10. CONSTITUTIONAL: The patient is alert and oriented to person, place, and time. Appears mildly uncomfortable in bed. Nontoxic in appearance. HEAD: Atraumatic and normocephalic. EYES: PERRLA. Extraocular muscles intact. Sclerae nonicteric. ENT: Nares patent bilaterally. Oropharynx is clear. Uvula midline. Moist mucous membranes. No oral lesions. NECK: Supple. Trachea midline. No JVD. No cervical adenopathy. Full range of motion. No cervical tenderness. RESPIRATORY/CHEST: Respirations are even and unlabored. Clear to auscultation. No rhonchi, wheezes, or rales. CARDIAC: S1, S2 appreciated. No murmurs, rubs, or gallops. ABDOMEN: Soft, nondistended, mildly tender to mid epigastric and right upper quadrant. Active bowel sounds. There is no rebound, no guarding, no rigidity. Negative Rovsing sign. Positive Cheung sign. BACK: No central spinous tenderness. Full range of motion. Right CVA tenderness is positive. EXTREMITIES: Upper extremities, full range of motion. Strength normal. Sensation intact. Palpable radial pulses. Lower extremities; full range of motion, strength intact, and sensation intact. Palpable pedal pulses. No swelling. NEUROLOGIC: The patient is alert and oriented to person, place, and time. Follows all commands. No focal deficits. Steady gait. PSYCHIATRIC: Normal affect. The patient is alert and oriented to person, place , and time. LABORATORY DATA AND DIAGNOSTICS: CT of the abdomen and pelvis showed uterine fibroids and calcifications and pleural effusions with atelectasis. The patient 's sodium is 142, potassium 4.3, chloride 107, CO2 22, BUN 16, creatinine 1.18. Lactic acid was 1.5, calcium 9.0, total bilirubin 0.2, AST 12, ALT 11, alkaline phosphatase 94. WBC 10.7, hemoglobin 9.6, hematocrit 30.4, platelets are 167. Urine was positive for ketones. Lipase 119. IMPRESSION PLAN: 1. Acute pancreatitis. We will admit the patient to the medical floor inpatient status. Expected length of stay at least 2 midnights. The patient presented afebrile, mildly hypertensive with a regular pulse, regular respirations, and 10 /10 pain. lipase 119, normal LFTs, LA 1.5. The patient received 8 mg of morphine, 2 L of normal saline with symptom improvement. Currently, pain is 0/10. We will make the patient n.p.o. We will consult Gastroenterology. We will have p.r.n. antiemetics and analgesics. We will check a fasting lipid profile. We will get baseline troponin and BNP given her cardiac history. We will recheck med levels in the a.m. 2. Uterine fibroids. CT was positive for uterine fibroids and calcifications. The patient denied any vaginal symptoms. No discharge. No bleeding. The patient has a history of a tubal. 3. Congestive heart failure. The patient had echocardiogram today with senior software quality engineer, Dr. Duque with unknown results. The patient did receive 2 L of normal saline in the [place] [facility]. We will gently IV hydrate the patient. We will get a baseline troponin, BNP, and EKG. 4. Chronic kidney disease 3, appears stable at this time. 5. Hypertension. We will restart patient's carvedilol, hydralazine, lisinopril, Lasix as blood pressure permits. 6. Hyperlipidemia. We will restart patient's rosuvastatin when medication is reconciled by nursing. 7. Diabetes type 2. The patient takes metformin. We will hold oral dose for now. We will start her on sliding scale with before meals and at bedtime Accu-Cheks. 8. Gastroesophageal reflux disease. We will start Protonix. 9. Lovenox for deep venous thrombosis prophylaxis, Protonix for gastrointestinal prophylaxis. The patient is a full code. Her medical contact is going to be Roxanna Guzmán, it is her daughter, . Discussed the case with Dr. Yoon. Job ID: [id number] [facility]
[2019-11-02 01:45] LABS: Troponin I 0.012 ng/mL (< 0.028)
[2019-11-02] MEDS: Sodium Chloride 0.9% 1,000 ML IV SCH ×2 (02:07→20:09)
[2019-11-02 05:52] LABS: ALT (SGPT) 9 U/L (8-55); AST (SGOT) 12 U/L (5-34); Albumin 3.6 g/dL (3.5-5.0); Alkaline Phosphatase 87 U/L (40-110); Anion Gap 11 mmol/L (10-20); BUN (Urea Nitrogen) 15 mg/dL (9.8-20.1); Bilirubin, Total 0.2 mg/dL (0.2-1.2); Calc. Creatinine Clearance 83 mL/min (70-130); Calcium 8.6 mg/dL (7.8-10.44); Carbon Dioxide 25 mmol/L (22-29); Cardiac Risk 2.2 (Less than 4.5); Chloride 107 mmol/L (98-107); Cholesterol 104 mg/dl (< 200 Desired); Estimated GFR-MDRD 66; Globulin 2.9 g/dL (2.4-3.5); Glucose 118 mg/dL (70-105); HDL Cholesterol 47 mg/dL (>60 Neg Risk); LDL Cholesterol, Calculated 47 mg/dL; Potassium 4.1 mmol/L (3.5-5.1); Protein, Total 6.5 g/dL (6.0-8.3); Sodium 139 mmol/L (136-145); Triglycerides 49 mg/dL (Less than 150)
[2019-11-02] MEDS: Lisinopril 10 MG TAB PO SCH ×2 (08:15→21:01)
[2019-11-02] MEDS: Carvedilol 6.25 MG TAB PO SCH ×2 (08:15→20:00)
[2019-11-02] MEDS: Aspirin 81 mg Enteric Coated Tablet PO SCH (08:15)
[2019-11-02] MEDS: Clopidogrel Bisulfate 75 MG TAB PO SCH (08:16)
[2019-11-02] MEDS: Escitalopram Oxalate 20 mg Tablet PO SCH (08:16)
[2019-11-02] MEDS: Pantoprazole 40 MG VIAL IVP SCH (08:17)
[2019-11-02] MEDS: hydrALAZINE 25 MG TAB PO SCH ×2 (08:19→15:37)
--- NOTE | 2019-11-02 08:32 | RAD ---
Chest one view HISTORY: Chest pain. COMPARISON: 02/26/2019. FINDINGS: Cardiac silhouette and pulmonary vasculature are unremarkable. Mediastinum is midline. No l obar consolidation or evidence of pneumothorax. IMPRESSION : No abnormalities are demonstrated.
[2019-11-02] MEDS ORDERED: Enoxaparin Sodium 40 MG/0.4 ML SYRINGE SC SCH (09:00)
--- NOTE | 2019-11-02 12:27 | ULT ---
GALLBLADDER ULTRASOUND: HISTORY: Right upper quadrant abdominal pain FINDINGS: The liver demonstrates homogeneous echotexture without focal mass or intrahepatic biliary ductal dila tation. No gallstones, gallbladder wall thickening or pericholecystic fluid are seen. The right kidney and pancreas are normal. The common duct [id number] in diameter. No free fluid is seen in the Rao's pouch. IMPRESSION: Normal exam.
--- NOTE | 2019-11-02 12:29 | PDOC.HOSPP ---
- Subjective Encounter Date: 11/02/19 Encounter Time: 09:45 Subjective: c/o epigastric pain 5/10 intensity, no nausea or vomiting, no radiation of this pain last bm was yesterday - Objective Vital Signs & Weight: Vital Signs (12 hours) Temp Pulse Resp BP BP Pulse Ox 11/02/19 11:37 98.3 F 65 18 112/60 92 L 11/02/19 08:19 71 113/68 11/02/19 08:15 113/68 11/02/19 08:00 96 11/02/19 07:19 98.5 F 71 16 113/68 96 11/02/19 04:35 96 11/02/19 04:00 98.1 F 69 20 120/69 94 L 11/02/19 00:34 98.4 F 64 20 121/72 93 L Weight Weight 189 lb 7 oz I&O: 11/01/19 11/02/19 11/03/19 06:59 06:59 06:59 Intake Total 250 Output Total 1 Balance 249 Result Diagrams: 11/02/19 01:14 11/02/19 05:14 Additional Labs: Accuchecks 11/02/19 11/02/19 11:41 04:02 POC Glucose 122 H 116 H Hospitalist ROS - Medication Medications: Active Medications Generic Name Dose Route Start Last Admin Trade Name Nolvia PRN Reason Stop Dose Admin Aspirin 81 mg 11/02/19 09:00 11/02/19 08:15 Ecotrin PO 81 mg DAILY JEMIMA Administration Carvedilol 25 mg 11/02/19 09:00 11/02/19 08:15 Coreg PO 25 mg BID JEMIMA Administration Clopidogrel Bisulfate 75 mg 11/02/19 09:00 11/02/19 08:16 Plavix PO 75 mg DAILY JEMIMA Administration Escitalopram Oxalate 20 mg 11/02/19 09:00 11/02/19 08:16 Lexapro PO 20 mg DAILY JEMIMA Administration Hydralazine HCl 50 mg 11/02/19 09:00 11/02/19 08:19 Apresoline PO 50 mg TID JEMIMA Administration Lisinopril 10 mg 11/02/19 09:00 11/02/19 08:15 Zestril PO 10 mg BID JEMIMA Administration Morphine Sulfate 4 mg 11/02/19 01:36 11/02/19 11:46 Morphine SLOW IVP 4 mg Q4H PRN Administration Pain Pantoprazole Sodium 40 mg 11/02/19 09:00 11/02/19 08:17 Protonix IVP 40 mg DAILY JEMIMA Administration - Exam General Appearance: awake alert Eye: PERRL, anicteric sclera ENT: no oropharyngeal lesions, moist mucosa Neck: supple, no JVD Heart: RRR, no murmur Respiratory: no wheezes, no rales Gastrointestinal: soft, non-distended, normal bowel sounds, no guarding, no rigidity, tender to palpation Extremities: no cyanosis, no edema Neurological: cranial nerve grossly intact, no focal deficits Psychiatric: normal affect, A&O x 3 Hosp A/P (1) PUD (peptic ulcer disease) Code(s): K27.9 - PEPTIC ULC, SITE UNSP, UNSP AC OR CHR, W/O HEMOR OR PERF Status: Suspected (2) Epigastric pain Code(s): R10.13 - EPIGASTRIC PAIN Status: Acute (3) DM2 (diabetes mellitus, type 2) Status: Chronic Qualifiers: Diabetes mellitus assistant terminal manager insulin use: without nursing home use (4) HTN (hypertension) Code(s): I10 - ESSENTIAL (PRIMARY) HYPERTENSION Status: Chronic Qualifiers: Hypertension type: essential hypertension Qualified Code(s): I10 - Essential (primary) hypertension (5) Dyslipidemia Code(s): E78.5 - HYPERLIPIDEMIA, UNSPECIFIED Status: Chronic - Plan usg abdomen to see if she has ac cholecystitis, LFT's are within normal limits likely might have PUD CT did not reveal any abnormalities in pancreas with contrast yesterday await GI opinion continue protonix, npo until usg results are back iv fluids last ef was normal
--- NOTE | 2019-11-02 15:20 | CON ---
DATE OF CONSULTATION: 11/02/2019 REQUESTING PHYSICIAN: Ton Ramsey NP REASON FOR CONSULTATION: Abdominal pain. HISTORY OF PRESENT ILLNESS: Winifred Goodwin is a very pleasant 53-year-old woman with a history of diabetes, chronic kidney disease, and CHF. She has a prior history of urolithiasis. She has seen my colleague, Dr. Pak, a couple of years ago for colon screening. She underwent colonoscopy in September 2017 and had only a single tiny polyp removed. She was found to have diverticulosis throughout the colon. She has no chronic gastrointestinal symptoms except for some heartburn for which she takes famotidine 40 mg daily. She denies NSAID use. She reports that for a few weeks, she has lost a little bit of weight due to some reduction in appetite and mild abdominal discomfort, but now for the past 3 to 4 days, she has been having more significant abdominal pain, which fairly acutely worsened and then further gradually worsened over this time frame. She describes the pain as being in the epigastrium and nonradiating. However, she also describes another pain on the right side of the back, which is not as bothersome at this time. There is no nausea or vomiting associated with this. There is no diarrhea. She states her bowel movements are essentially normal and her last normal appearing stool was yesterday. On presentation, labs are essentially unremarkable, but she does have a normocytic anemia with hemoglobin 9.7 and lipase is mildly elevated to 119, but a CT of the abdomen and pelvis was normal showing no acute processes and an abdominal ultrasound from today was also normal showing normal appearing liver, gallbladder, and common bile duct. Her urine culture is not growing anything. She is receiving morphine p.r.n., which she says it helps, but only temporarily. She was started on IV pantoprazole. We are consulted for further evaluation. REVIEW OF SYSTEMS: Full review of systems including constitutional, head, eyes, ears, nose, throat, GI, , cardiovascular, respiratory, musculoskeletal, and neurologic systems is negative except as noted in the HPI. PAST MEDICAL HISTORY: CHF, hypertension, hyperlipidemia, urolithiasis, diabetes type 2, chronic kidney disease stage 3, depression/anxiety, back surgery, neck surgery, tubal ligation. OUTPATIENT MEDICATIONS: 1. Famotidine 40 mg daily. 2. Lexapro. 3. Plavix. 4. Vitamin D3 of 1000 units daily. 5. Coreg 25 mg b.i.d. 6. Metformin. 7. Hydralazine. 8. Zolpidem. 9. Crestor. 10. Lisinopril. 11. Lasix 20 mg daily. 12. Tizanidine. 13. Aspirin 81 mg daily. FAMILY HISTORY: Negative for GI illness or malignancy. SOCIAL HISTORY: She is a former smoker. No alcohol or drug use. PHYSICAL EXAMINATION: VITAL SIGNS: Temperature 98.3, pulse 65, blood pressure 112/60, 92% oxygen saturation on room air. GENERAL: A 53-year-old woman, lying in bed comfortably, in no acute distress. SKIN: No jaundice. No rashes were palpable. EYES: No scleral icterus. Extraocular movements intact. ENT: Mucous membranes moist. No oral lesions. LYMPH: No submandibular supraclavicular lymphadenopathy. Thyroid nontender to palpation. HEART: Regular rate and rhythm. LUNGS: Clear to auscultation bilaterally. ABDOMEN: Nondistended. Bowel sounds are present. The abdomen is soft. There is tenderness to palpation in the epigastrium as well as in the right side of the abdomen, but no guarding or rebound tenderness. EXTREMITIES: No peripheral edema. VESSELS: Radial pulses 2+ bilaterally. NEUROLOGIC: Cranial nerves 2 through 12 intact bilaterally. No focal deficits. LABORATORY STUDIES: Hemoglobin 9.7, WBC 9.2, platelets 201, MCV is 90.4. Sodium 139, potassium 4.1, BUN 15, creatinine 1.05. LFTs all normal with total bilirubin 0.2, alkaline phosphatase 87, AST 12, ALT 9, and albumin 3.6. Lipase only mildly elevated to 119. Triglycerides 49. BNP less than 10. Troponin negative. Urine culture shows no growth at 1200 hours. IMAGING STUDIES: Chest x-ray is normal. CT of the abdomen and pelvis shows no acute processes. Specifically, there is normal appearing liver, pancreas, spleen, and bowel. Abdominal ultrasound is also normal, showing normal liver, gallbladder, and common bile duct of only 5 mm. ASSESSMENT AND PLAN: 1. Epigastric pain. 2. Anemia, normocytic. I note the mildly elevated lipase level, but notes also normal-appearing pancreas on CT. I feel it is less likely this represents an attack of acute pancreatitis. Consider upper GI mucosal pathology such as gastritis or peptic ulcer disease given her failure to improve so far this admission. Further evaluation is warranted. We will plan for diagnostic esophagogastroduodenoscopy tomorrow. I would have the patient remain n.p.o. in the meantime. All other laboratory studies are favorable. Thank you for the consultation. Please call anytime with questions or concerns. Job ID: [id number]
--- NOTE | 2019-11-02 15:55 | EKG ---
Test Reason : Blood Pressure : / mmHG Vent. Rate : 065 BPM Atrial Rate : 065 BPM P-R Int : 168 ms QRS Dur : 100 ms QT Int : 410 ms P-R-T Axes : 070 012 027 degrees QTc Int : 426 ms Normal sinus rhythm Normal ECG When compared with ECG of 09-SEP-2019 10:48, No significant change was found Confirmed by TOM ANDRES, DR. Duarte ([id number]) on 11/02/2019 3:55:12 PM Referred By: LINN STINSON Confirmed By:DR. Gerald SANTOS MD
[2019-11-02] MEDS: Rosuvastatin 20 MG TAB PO SCH (20:00)
[2019-11-03] MEDS: Zolpidem Tartrate 5 MG TAB PO SCH ×2 (01:21→20:08)
[2019-11-03] MEDS: hydrALAZINE 25 MG TAB PO SCH ×4 (01:23→20:06)
[2019-11-03 06:27] LABS: #Eosinphils 0.3 thou/uL (0.0-0.7); #Lymphocytes 2.9 thou/uL (1.20-3.40); #Monocytes 0.4 thou/uL (0.11-0.59); #Neutrophils 3.6 thou/uL (1.40-6.50); %Basophils 0.6 % (0.0-1.0); %Eosinophils 3.8 % (0.0-10.0); %Lymphocytes 39.7 % (21.0-51.0); %Monocytes 5.8 % (0.0-10.0); %Neutrophils 50.1 % (42.0-75.0); Hemoglobin 9.4 g/dL (12.0-16.0); Mean Corpuscular HGB CONC 31.7 g/dL (32.0-36.0); Mean Corpuscular Hemoglobin 28.4 pg (27.0-31.0); Mean Corpuscular Volume 89.5 fL (78.0-98.0); Mean Platelet Volume 8.2 fL (7.4-10.4); Platelet Count 190 thou/uL (130-400); RBC Distribution Width 13.9 % (11.5-14.5); Red Blood Cell (RBC) Count 3.29 mill/uL (4.20-5.40); White Blood Cell (WBC) Count 7.2 thou/uL (4.8-10.8)
[2019-11-03] MEDS: Morphine 4 MG/ML VIAL SLOW IVP PRN ×4 (06:56→22:24)
[2019-11-03 06:58] LABS: ALT (SGPT) 9 U/L (8-55); AST (SGOT) 11 U/L (5-34); Albumin 3.5 g/dL (3.5-5.0); Alkaline Phosphatase 87 U/L (40-110); Anion Gap 10 mmol/L (10-20); BUN (Urea Nitrogen) 9 mg/dL (9.8-20.1); Bilirubin, Total 0.3 mg/dL (0.2-1.2); Calc. Creatinine Clearance 96 mL/min (70-130); Calcium 8.5 mg/dL (7.8-10.44); Carbon Dioxide 26 mmol/L (22-29); Chloride 105 mmol/L (98-107); Estimated GFR-MDRD 78; Glucose 78 mg/dL (70-105); Lipase 28 U/L (8-78); Magnesium 1.6 mg/dL (1.6-2.6); Potassium 3.8 mmol/L (3.5-5.1); Protein, Total 6.5 g/dL (6.0-8.3); Sodium 137 mmol/L (136-145)
[2019-11-03] MEDS: Carvedilol 25 MG TAB PO SCH ×2 (08:11→20:06)
[2019-11-03] MEDS: Clopidogrel Bisulfate 75 MG TAB PO SCH (08:46)
[2019-11-03] MEDS: Aspirin 81 mg Enteric Coated Tablet PO SCH (08:46)
--- NOTE | 2019-11-03 09:57 | PDOC.HOSPP ---
- Subjective Encounter Date: 11/03/19 Encounter Time: 11:30 Subjective: Patient seen and examined for abd pain. No nausea. EGD not done due to pending COVID testing. No new complaints. No overnight events - Objective Vital Signs & Weight: Vital Signs (12 hours) Temp Pulse Resp BP BP Pulse Ox 11/03/19 07:23 98.6 F 68 18 121/75 93 L 11/03/19 01:23 123/68 Weight Weight 189 lb 7 oz I&O: 11/02/19 11/03/19 11/04/19 06:59 06:59 06:59 Intake Total 250 600 Output Total 1 Balance 249 600 Result Diagrams: 11/03/19 05:49 11/03/19 05:49 Additional Labs: Accuchecks 11/03/19 11/02/19 11/02/19 04:49 19:47 15:39 POC Glucose 91 94 97 11/02/19 11:41 POC Glucose 122 H Laboratory Tests 11/03/19 05:49 Lipase 28 Radiology Reviewed by me: Yes (CT abd - normal pancreas) Hospitalist ROS - Review of Systems Respiratory: denies: cough, dry, shortness of breath, hemoptysis, SOB with excertion, pleuritic pain, sputum, wheezing, other Cardiovascular: denies: chest pain, palpitations, orthopnea, paroxysmal noc. dyspnea, edema, light headedness, other Gastrointestinal: reports: abdominal pain. denies: nausea, vomiting, diarrhea, constipation, melena, hematochezia, other - Medication Medications: Active Medications Generic Name Dose Route Start Last Admin Trade Name Freq PRN Reason Stop Dose Admin Aspirin 81 mg 11/02/19 09:00 11/03/19 08:46 Ecotrin PO Not Given DAILY [facility] Carvedilol 25 mg 11/03/19 09:00 11/03/19 08:11 Coreg PO 25 mg BID JEMIMA Administration Clopidogrel Bisulfate 75 mg 11/02/19 09:00 11/03/19 08:46 Plavix PO Not Given DAILY [facility] Escitalopram Oxalate 20 mg 11/02/19 09:00 11/02/19 08:16 Lexapro PO 20 mg DAILY JEMIMA Administration Hydralazine HCl 50 mg 11/02/19 09:00 11/03/19 01:23 Apresoline PO Not Given TID [facility] Lisinopril 10 mg 11/02/19 09:00 11/02/19 21:01 Zestril PO Not Given BID JEMIMA Morphine Sulfate 4 mg 11/02/19 01:36 11/03/19 06:56 Morphine SLOW IVP 4 mg Q4H PRN Administration Pain Pantoprazole Sodium 40 mg 11/02/19 09:00 11/02/19 08:17 Protonix IVP 40 mg DAILY JEMIMA Administration Rosuvastatin Calcium 20 mg 11/02/19 21:00 11/02/19 20:00 Crestor PO 20 mg HS JEMIMA Administration Zolpidem Tartrate 5 mg 11/02/19 21:00 11/03/19 01:21 Ambien PO Not Given HS JEMIMA - Exam General Appearance: NAD Neck: no JVD Heart: RRR, no gallops Respiratory: no wheezes, no ronchi Gastrointestinal: no guarding, no rigidity, tender to palpation (epigastric region) Extremities: no cyanosis, no clubbing Hosp A/P - Plan DVT proph w/SCDs Epigastric pain prob due to PUD Obesity BMI 30.6 HTN DM2 HLD GERD CKD 2 Chronic Anemia prob due to nutritional def PLAN: Await EGD Lipase normal Cont PPI Cont Coreg Cont other meds as above Ambulate
[2019-11-03] MEDS: Lisinopril 10 MG TAB PO SCH ×2 (10:18→20:06)
[2019-11-03] MEDS: Pantoprazole 40 MG VIAL IVP SCH (10:19)
[2019-11-03] MEDS: Escitalopram Oxalate 20 mg Tablet PO SCH (10:19)
--- NOTE | 2019-11-03 11:20 | PRG ---
DATE OF SERVICE: 11/03/2019 SUBJECTIVE: Ms. Goodwin still has the epigastric abdominal pain. No nausea or vomiting today. No diarrhea or constipation. No fever. OBJECTIVE: VITAL SIGNS: Temperature 98.6, pulse 68, and blood pressure 121/75. GENERAL: She is in no acute distress. Alert and oriented x3. LUNGS: Clear to auscultation bilaterally. HEART: Regular rate and rhythm without murmur. ABDOMEN: Soft, nontender, and nondistended. Bowel sounds are present. EXTREMITIES: No lower extremity edema. LABORATORY DATA: White blood cell count 7.2, hemoglobin 9.4, and platelets 190. Creatinine 0.91, bilirubin 0.3, AST 11, ALT 9, alkaline phosphatase 87, lipase 28. IMPRESSION: 1. Epigastric abdominal pain. Plan is to follow through with upper endoscopy to evaluate for peptic ulcer or gastritis. Her lipase was mildly elevated on presentation, but not significantly elevated, and her CT scan showed no significant changes of the pancreas, and she does not meet criteria to diagnose acute pancreatitis. 2. Normocytic anemia. The cause of this, I do not see, having been fully evaluated. She has chronic anemia with her baseline around 10 going back quite some time. I will check iron studies and B12 and folate. RECOMMENDATIONS: 1. We will plan EGD. This is being deferred until she has a negative COVID test, which was now ordered. 2. Check COVID nasal swab PCR. 3. Hopefully, we will have the COVID test back tomorrow, so we can follow through with endoscopy tomorrow morning. 4. Check iron studies, B12, folic acid. Job ID: [id number]
[2019-11-03 11:46] LABS: Iron 49 ug/dL (50-170); Iron Binding Capacity, Total 250 mcg/dL (265-497)
[2019-11-03 12:11] LABS: Ferritin 41.5 ng/mL (10-291)
[2019-11-03] MEDS: Rosuvastatin 20 MG TAB PO SCH (20:06)
[2019-11-04] MEDS: Morphine 4 MG/ML VIAL SLOW IVP PRN ×4 (05:20→22:07)
[2019-11-04] MEDS: Carvedilol 25 MG TAB PO SCH ×2 (08:16→22:07)
[2019-11-04] MEDS ORDERED: Promethazine HCl 25 MG/ML VIAL IM PRN (10:09)
[2019-11-04] MEDS ORDERED: Ondansetron HCl/PF 4 MG/2 ML Vial IVP PRN (10:09)
[2019-11-04] MEDS ORDERED: Promethazine HCl 25 MG/ML VIAL SLOW IVP PRN (10:09)
[2019-11-04] MEDS: Aspirin 81 mg Enteric Coated Tablet PO SCH (10:26)
[2019-11-04] MEDS: Lisinopril 10 MG TAB PO SCH (10:27)
[2019-11-04] MEDS: Escitalopram Oxalate 20 mg Tablet PO SCH (10:27)
[2019-11-04] MEDS: Clopidogrel Bisulfate 75 MG TAB PO SCH (10:27)
[2019-11-04] MEDS: hydrALAZINE 25 MG TAB PO SCH ×2 (10:27→16:16)
[2019-11-04] MEDS: Pantoprazole 40 MG VIAL IVP SCH (10:35)
[2019-11-04] MEDS ORDERED: Lidocaine 1% PF 5 ML VIAL ONE (11:35)
[2019-11-04] MEDS ORDERED: PROPOFOL 200 MG/20 ML VIAL ONE (11:35)
--- NOTE | 2019-11-04 12:38 | OP ---
DATE OF PROCEDURE: 11/04/2019 PROCEDURE PERFORMED: Esophagogastroduodenoscopy with biopsy. INDICATIONS FOR PROCEDURE: Anemia, midepigastric abdominal pain. DESCRIPTION OF PROCEDURE: After the risks and benefits of the procedure were explained to the patient including risks of bleeding, infection, perforation, reactions to anesthesia, aspiration and/or pain, informed consent was obtained. The patient was then taken to the endoscopy suite where deep sedation was administered via propofol and anesthesia support. Once adequate sedation was achieved, the standard gastroscope was introduced into the mouth with intubation of the esophagus, stomach, and the proximal small intestines with the findings listed below. The patient tolerated the procedure well with no immediate perioperative complications. On conclusion of the procedure, all equipment was removed from the patient and she was transferred to PACU in satisfactory condition. FINDINGS: Esophagus: Normal-appearing mucosa was seen in the proximal, mid, and distal esophagus. There was no evidence of erosions, ulcerations, mass lesions, or active/recent bleeding. Stomach: Normal-appearing mucosa was seen at the gastroesophageal junction, cardia, fundus, and incisura. However, approximately 5 to 6 small slightly cratered ulcerations, measuring 1-2 mm in size, were seen in the distal gastric body and proximal antrum. They did not display any evidence of active or recent bleeding nor did they have any significant amount of erythema surrounding the ulcerations as well. Multiple biopsies were taken from these ulcerations and placed in a specimen jar for further evaluation. Otherwise, there was no evidence of mass lesions or active/recent bleeding seen in the remainder of the stomach. Duodenum: Normal-appearing mucosa was seen in both the duodenal bulb and second portion of the duodenum. There was no evidence of erosions, ulcerations, mass lesions, or active/recent bleeding. IMPRESSION: 1. Multiple small (1-2 mm) slightly cratered ulcerations seen in the junction between the gastric body and the antrum without significant surrounding erythema, now status post biopsies. 2. Otherwise normal upper endoscopy. RECOMMENDATIONS: 1. We will follow up on the biopsy results with further management dictated by the pathology report. 2. Would continue the patient on PPI 40 mg b.i.d. 3. Advance the patient's diet as tolerated. 4. Would avoid any NSAIDs as they could be a causative mechanism for her ulcerations. 5. Pain control per primary team. We will continue to follow the patient while inpatient. Please call with any additional questions. Job ID: [id number]
[2019-11-04] MEDS: Rosuvastatin 20 MG TAB PO SCH (22:07)
[2019-11-05] MEDS: hydrALAZINE 25 MG TAB PO SCH ×3 (00:24→15:41)
[2019-11-05] MEDS: Lisinopril 10 MG TAB PO SCH ×2 (00:25→08:32)
[2019-11-05] MEDS: Zolpidem Tartrate 5 MG TAB PO SCH (03:01)
[2019-11-05 05:53] LABS: #Eosinphils 0.2 thou/uL (0.0-0.7); #Lymphocytes 2.6 thou/uL (1.20-3.40); #Monocytes 0.5 thou/uL (0.11-0.59); #Neutrophils 3.4 thou/uL (1.40-6.50); %Basophils 0.1 % (0.0-1.0); %Eosinophils 2.5 % (0.0-10.0); %Lymphocytes 38.5 % (21.0-51.0); %Monocytes 8.1 % (0.0-10.0); %Neutrophils 50.8 % (42.0-75.0); Hemoglobin 9.5 g/dL (12.0-16.0); Mean Corpuscular HGB CONC 30.8 g/dL (32.0-36.0); Mean Corpuscular Hemoglobin 27.6 pg (27.0-31.0); Mean Corpuscular Volume 89.6 fL (78.0-98.0); Mean Platelet Volume 8.1 fL (7.4-10.4); Platelet Count 170 thou/uL (130-400); RBC Distribution Width 13.7 % (11.5-14.5); Red Blood Cell (RBC) Count 3.45 mill/uL (4.20-5.40); White Blood Cell (WBC) Count 6.7 thou/uL (4.8-10.8)
[2019-11-05 06:12] LABS: ALT (SGPT) 9 U/L (8-55); AST (SGOT) 12 U/L (5-34); Albumin 3.4 g/dL (3.5-5.0); Alkaline Phosphatase 81 U/L (40-110); Anion Gap 11 mmol/L (10-20); BUN (Urea Nitrogen) 7 mg/dL (9.8-20.1); Bilirubin, Total 0.2 mg/dL (0.2-1.2); Calc. Creatinine Clearance 89 mL/min (70-130); Calcium 8.2 mg/dL (7.8-10.44); Carbon Dioxide 23 mmol/L (22-29); Chloride 107 mmol/L (98-107); Estimated GFR-MDRD 72; Glucose 155 mg/dL (70-105); Potassium 3.8 mmol/L (3.5-5.1); Protein, Total 6.4 g/dL (6.0-8.3); Sodium 137 mmol/L (136-145)
[2019-11-05] MEDS: Morphine 4 MG/ML VIAL SLOW IVP PRN (06:39)
[2019-11-05 08:01] VITALS: TEMP 98.6
[2019-11-05] MEDS: Aspirin 81 mg Enteric Coated Tablet PO SCH (08:32)
[2019-11-05] MEDS: Carvedilol 25 MG TAB PO SCH (08:32)
[2019-11-05] MEDS: Escitalopram Oxalate 20 mg Tablet PO SCH (08:32)
[2019-11-05] MEDS: Clopidogrel Bisulfate 75 MG TAB PO SCH (08:32)
[2019-11-05 08:33] VITALS: BP 127/68
[2019-11-05] MEDS ORDERED: traMADol HCl 50 MG TAB PO PRN (09:53)
[2019-11-05] MEDS ORDERED: Dicyclomine 10 MG CAP PO PRN (09:53)
--- NOTE | 2019-11-05 11:02 | PDOC.HOSPP ---
- Subjective Encounter Date: 11/04/19 Encounter Time: 10:00 Subjective: Patient seen and examined for Abd pain. No nausea. No new complaints. No overnight events - Objective Vital Signs & Weight: Vital Signs (12 hours) Temp Pulse Resp BP BP Pulse Ox 11/05/19 08:32 73 127/68 11/05/19 07:58 98.6 F 73 18 137/64 97 11/05/19 00:25 127/68 11/05/19 00:24 76 Weight Weight 189 lb 7 oz I&O: 11/04/19 11/05/19 11/06/19 06:59 06:59 06:59 Intake Total 920 Balance 920 Result Diagrams: 11/05/19 05:31 11/05/19 05:31 Additional Labs: Accuchecks 11/05/19 11/04/19 11/04/19 05:20 20:22 16:31 POC Glucose 168 H 180 H 133 H 11/04/19 11:19 POC Glucose 265 H Hospitalist ROS - Review of Systems Respiratory: denies: cough, dry, shortness of breath, hemoptysis, SOB with excertion, pleuritic pain, sputum, wheezing, other Cardiovascular: denies: chest pain, palpitations, orthopnea, paroxysmal noc. dyspnea, edema, light headedness, other - Medication Medications: Active Medications Generic Name Dose Route Start Last Admin Trade Name Freq PRN Reason Stop Dose Admin Aspirin 81 mg 11/02/19 09:00 11/05/19 08:32 Ecotrin PO 81 mg DAILY JEMIMA Administration Carvedilol 25 mg 11/03/19 09:00 11/05/19 08:32 Coreg PO 25 mg BID JEMIMA Administration Clopidogrel Bisulfate 75 mg 11/02/19 09:00 11/05/19 08:32 Plavix PO 75 mg DAILY JEMIMA Administration Escitalopram Oxalate 20 mg 11/02/19 09:00 11/05/19 08:32 Lexapro PO 20 mg DAILY JEMIMA Administration Hydralazine HCl 50 mg 11/02/19 09:00 11/05/19 08:32 Apresoline PO 50 mg TID JEMIMA Administration Insulin Human Lispro 0 units 11/02/19 00:58 11/04/19 12:25 Humalog SC 4 unit .MILD SLIDING SCALE PRN Administration Mild Correctional Scale Lisinopril 10 mg 11/02/19 09:00 11/05/19 08:32 Zestril PO 10 mg BID JEMIMA Administration Pantoprazole Sodium 40 mg 11/04/19 21:00 11/05/19 08:32 Protonix PO 40 mg BID JEMIMA Administration Rosuvastatin Calcium 20 mg 11/02/19 21:00 11/04/19 22:07 Crestor PO 20 mg HS JEMIMA Administration Zolpidem Tartrate 5 mg 11/02/19 21:00 11/05/19 03:01 Ambien PO Not Given HS JEMIMA - Exam General Appearance: NAD Heart: RRR, no gallops Respiratory: no wheezes, no ronchi Gastrointestinal: non-tender, normal bowel sounds, tender to palpation (in epigastric region) Extremities: no cyanosis, no clubbing Neurological: no new deficit Psychiatric: A&O x 3 Hosp A/P - Plan DVT proph w/SCDs Epigastric pain prob due to PUD Obesity BMI 30.6 HTN DM2 HLD GERD CKD 2 Chronic Anemia prob due to nutritional def PLAN: EGD today Cont PPI Pain control Cont Coreg and other meds as above Ambulate
[2019-11-05] MEDS ORDERED: Acetaminophen 325 MG TAB PO SCH (15:00)
--- NOTE | 2019-11-06 02:21 | DIS ---
DATE OF ADMISSION: 11/02/2019 DATE OF DISCHARGE: 11/05/2019 DISCHARGE DISPOSITION: Home. FOLLOWUP: 1. Follow up with primary care physician, Dr. Treadwell in 1 week. 2. Follow up with [facility] in 2 weeks. DISCHARGE MEDICATIONS: Protonix 40 mg b.i.d. All other home medications were left unchanged. The patient was also advised to take MiraLAX on a daily basis. The patient was seen on the day of discharge. She denies any new complaints. Abdominal pain has significantly improved. BRIEF HOSPITAL COURSE: The patient is a 53-year-old female, who presented to the emergency room with abdominal discomfort. Please refer to the history and physical for further details. The patient was admitted to the hospital with a diagnosis of abdominal pain of unclear etiology. Due to anemia with persistent abdominal pain, she underwent EGD that showed multiple small slightly cratered ulceration seen in the junction between the gastric body and the antrum. Biopsies were obtained. She was advised to avoid NSAIDs. She was also started on proton pump inhibitor. Abdominal pain has significantly improved. She also had a CT scan of the abdomen and pelvis that was negative for acute findings. She appears stable for discharge. FINAL DIAGNOSES: 1. Epigastric pain, probably secondary to peptic ulcer disease. 2. Hypertension. 3. Diabetes mellitus, type 2. 4. Hyperlipidemia. 5. Gastroesophageal reflux disease. 6. Chronic kidney disease, stage 2. 7. Obesity with a BMI of 30.6. 8. Chronic anemia probably due to nutritional deficiency. The patient understands the above plan of care. Job ID: [id number]
== END 2019-11-05 16:19 | disposition home or self-care (01) | DRG 384 ==
LOC: T4-A 20:56 → OBSVTOIN 11-02 00:49
PROVIDERS: ADMIT Internal Medicine; ATTEND Internal Medicine
PROC: 0DB68ZX Excision of Stomach, Via Natural or Artificial Opening Endoscopic, Diagnostic (ICD-10-PCS; principal; 2019-11-04)
DX: K27.9 Peptic ulcer, site unspecified, unspecified as acute or chronic, without hemorrhage or perforation (principal); I13.0 Hypertensive heart and chronic kidney disease with heart failure and stage 1 through stage 4 chronic kidney disease, or unspecified chronic kidney disease; E78.5 Hyperlipidemia, unspecified; K21.9 Gastro-esophageal reflux disease without esophagitis; E11.22 Type 2 diabetes mellitus with diabetic chronic kidney disease; N18.2 Chronic kidney disease, stage 2 (mild); E66.9 Obesity, unspecified; D53.9 Nutritional anemia, unspecified; F41.9 Anxiety disorder, unspecified; F32.9 Major depressive disorder, single episode, unspecified; I50.9 Heart failure, unspecified; D25.9 Leiomyoma of uterus, unspecified; Z11.59 Encounter for screening for other viral diseases; Z68.30 Body mass index [BMI] 30.0-30.9, adult; Z87.442 Personal history of urinary calculi; Z98.51 Tubal ligation status; Z88.8 Allergy status to other drugs, medicaments and biological substances; Z79.82 Long term (current) use of aspirin; Z79.02 Long term (current) use of antithrombotics/antiplatelets; Z87.891 Personal history of nicotine dependence; Z79.84 Long term (current) use of oral hypoglycemic drugs
CPT/HCPCS: 36415; 36416; 71045; 76705; 80053; 80061; 82607; 82728; 82746; 83540; 83550; 83690; 83735; 83880; 84484; 85025; 87635; 88305; 88312; 93005; 93010; C9113; J1650; J2270; J2704; U0002; U0003

== ENCOUNTER 2020-06-07 10:19 | Outpatient (CLI) | payer MEDICARE, MEDICAID ==
--- NOTE | 2020-06-07 10:50 | MMO ---
Bilateral MAMMO Bilat Screen [facility]. CLINICAL HISTORY: Patient is 54 years old and is seen for screening. The patient has no family history of breast cancer. The patient has no personal history of cancer. VIEWS: The views performed were: bilateral craniocaudal with tomosynthesis and bilateral mediolateral oblique with tomosynthesis. FILMS COMPARED: The present examination has been compared to prior imaging studies performed at [facility] [place] on 01/30/2010, 02/26/2011, 03/24/2017 and 03/16/2019. This study has been interpreted with the assistance of computer-aided detection. MAMMOGRAM FINDINGS: There are scattered fibroglandular densities. There are benign appearing calcifications seen in both breasts. There are no suspicious masses, suspicious calcifications, or new areas of architectural distortion. IMPRESSION: THERE IS NO MAMMOGRAPHIC EVIDENCE OF MALIGNANCY. A ROUTINE FOLLOW-UP MAMMOGRAM IN 1 YEAR IS RECOMMENDED. THE RESULTS OF THIS EXAM WERE SENT TO THE PATIENT. ACR BI-RADS Category 2 - Benign finding MAMMOGRAPHY NOTE: 1. A negative mammogram report should not delay a biopsy if a dominant of clinically suspicious mass is present. 2. Approximately 10% to 15% of breast cancers are not detected by mammography. 3. Adenosis and dense breasts may obscure an underlying neoplasm. Reported by: ASHELY WILD MD Electonically Signed: [id number]
== END 2020-06-07 10:20 | disposition home or self-care (01) ==
LOC: BICMAMMO 10:19
PROVIDERS: ATTEND Family Medicine
DX: Z12.31 Encounter for screening mammogram for malignant neoplasm of breast (principal)
CPT/HCPCS: 77063; 77067

== ENCOUNTER 2020-11-16 06:29 | Day surgery (SDC) | payer MEDICARE, MEDICAID ==
[2020-11-13 14:17] VITALS: BMI 32.8
[2020-11-16 07:53] VITALS: BP 133/78; TEMP 97.9
== END 2020-11-16 09:30 | disposition home or self-care (01) ==
LOC: RAD 06:29 → EDSTATUS 08:00 → RAD 09:30
PROVIDERS: ATTEND Neurological Surgery
PROC: B02B1ZZ Computerized Tomography (CT Scan) of Spinal Cord using Low Osmolar Contrast (ICD-10-PCS; principal; 2020-11-16)
DX: M54.16 Radiculopathy, lumbar region (principal); M48.061 Spinal stenosis, lumbar region without neurogenic claudication; I11.0 Hypertensive heart disease with heart failure; I50.9 Heart failure, unspecified; I25.10 Atherosclerotic heart disease of native coronary artery without angina pectoris; E11.9 Type 2 diabetes mellitus without complications; G89.29 Other chronic pain; I34.0 Nonrheumatic mitral (valve) insufficiency; Z86.73 Personal history of transient ischemic attack (TIA), and cerebral infarction without residual deficits; Z79.02 Long term (current) use of antithrombotics/antiplatelets; Z79.84 Long term (current) use of oral hypoglycemic drugs; Z79.899 Other long term (current) drug therapy; Z88.6 Allergy status to analgesic agent; Z88.8 Allergy status to other drugs, medicaments and biological substances; Z98.1 Arthrodesis status
CPT/HCPCS: 62304; 72132

== ENCOUNTER 2022-05-30 12:07 | Inpatient (IN) | payer MEDICARE, MEDICAID ==
[2022-05-30] MEDS ORDERED: Dextrose 50% Abboject 50 ML SYRINGE SLOW IVP PRN (14:30)
[2022-05-30] MEDS ORDERED: Dextrose 5% in Water 1,000 ML IV PRN (14:30)
[2022-05-30] MEDS ORDERED: Ondansetron PF 4 MG/2 ML Vial IVP PRN (14:30)
[2022-05-30] MEDS ORDERED: Nitroglycerin 50 MG/250 ML BOT 250 ML ONE (14:30)
[2022-05-30] MEDS ORDERED: HumaLOG 300 UNITS/3 ML VIAL SC PRN ×2 (14:30)
[2022-05-30] MEDS ORDERED: Nitroglycerin 50 MG/250 ML BOT 250 ML IVPB SCH (14:45)
[2022-05-30] MEDS: Sodium Chloride 0.9% 1,000 ML IV SCH (15:00)
[2022-05-30] MEDS ORDERED: FLU VACC QS2022-23(6MOS UP)/PF 60 MCG/0.5 ML SYRINGE IM ONE (15:45)
[2022-05-30 16:16] LABS: Troponin I Less than 0.010 ng/mL (< 0.028)
[2022-05-30] MEDS: Carvedilol 3.125 MG TAB PO SCH (17:20)
[2022-05-30] MEDS: Acetaminophen 325 MG TAB PO PRN ×2 (17:52→22:53)
[2022-05-30] MEDS: Morphine 2 MG/ML VIAL SLOW IVP PRN (19:36)
[2022-05-30] MEDS: Gabapentin 300 MG CAP PO SCH (20:52)
[2022-05-30] MEDS: Rosuvastatin 20 MG TAB PO SCH (20:53)
[2022-05-30] MEDS: Famotidine 20 MG TAB PO SCH (20:53)
[2022-05-31] MEDS: Sodium Chloride 0.9% 1,000 ML IV SCH ×2 (01:29→11:31)
[2022-05-31 04:21] LABS: #Eosinphils 0.2 thou/uL (0.0-0.7); #Lymphocytes 2.9 thou/uL (1.20-3.40); #Monocytes 0.4 thou/uL (0.11-0.59); #Neutrophils 3.8 thou/uL (1.40-6.50); %Basophils 0.7 % (0.0-1.0); %Eosinophils 2.9 % (0.0-10.0); %Monocytes 5.7 % (0.0-10.0); %Neutrophils 51.7 % (42.0-75.0); Hemoglobin 10.1 g/dL (12.0-16.0); Mean Corpuscular Hemoglobin 29.3 pg (27.0-31.0); Mean Corpuscular Volume 94.5 fl (78.0-98.0); Mean Platelet Volume 8.1 fL (7.4-10.4); Platelet Count 170 10x3/uL (130-400); RBC Distribution Width 13.3 % (11.5-14.5); Red Blood Cell (RBC) Count 3.44 mill/uL (4.20-5.40); White Blood Cell (WBC) Count 7.4 10x3/uL (4.8-10.8)
[2022-05-31 04:41] LABS: Anion Gap 11 mmol/L (10-20); BUN (Urea Nitrogen) 15 mg/dL (9.8-20.1); Calc. Creatinine Clearance 87 mL/min (70-130); Calcium 8.5 mg/dL (7.8-10.44); Carbon Dioxide 22 mmol/L (22-29); Chloride 109 mmol/L (98-107); Estimated GFR 68; Glucose 110 mg/dL (70-105); Potassium 4.2 mmol/L (3.5-5.1); Sodium 138 mmol/L (136-145)
[2022-05-31] MEDS: Famotidine 20 MG TAB PO SCH ×2 (08:11→20:42)
[2022-05-31] MEDS: Morphine 2 MG/ML VIAL SLOW IVP PRN (08:11)
[2022-05-31] MEDS: Aspirin Chewable 81 MG TAB PO SCH (08:12)
[2022-05-31] MEDS: Lisinopril 5 MG TAB PO SCH (08:12)
[2022-05-31] MEDS: Carvedilol 3.125 MG TAB PO SCH (08:12)
[2022-05-31] MEDS: Escitalopram Oxalate 20 mg Tablet PO SCH (08:12)
[2022-05-31] MEDS: Gabapentin 300 MG CAP PO SCH ×2 (08:12→20:42)
[2022-05-31] MEDS ORDERED: Communication Order-Pharmacy FS SCH (08:30)
[2022-05-31] MEDS ORDERED: Lidocaine 1% w/Epinephrine 1:100K 20 ML VIAL ONE (11:07)
[2022-05-31] MEDS ORDERED: Lidocaine 1% (PF) 30 ML VIAL ONE (11:08)
[2022-05-31] MEDS ORDERED: FENTANYL 50 MCG/ML 1 ML VIAL ONE (12:00)
[2022-05-31] MEDS ORDERED: Midazolam HCl 2 mg/2 ml Vial ONE (12:00)
[2022-05-31] MEDS ORDERED: Heparin 10,000 UNITS/ 10 ML VIAL ONE (12:01)
[2022-05-31] MEDS ORDERED: Nitroglycerin 100MG/250ML BOT 250 ML ONE (12:31)
[2022-05-31] MEDS ORDERED: Ketorolac Tromethamine 30 MG/ML VIAL ONE (12:44)
[2022-05-31] MEDS ORDERED: Sodium Chloride 0.9% 200 ML IV PRN (13:09)
[2022-05-31] MEDS ORDERED: Nitroglycerin 0.4 MG TAB (25 Tab Bottle) SL PRN (13:09)
[2022-05-31 15:14] VITALS: BMI 31.6
[2022-05-31] MEDS: Acetaminophen/Codeine 30-300mg Tablet PO PRN ×2 (18:02→23:04)
[2022-05-31] MEDS: Rosuvastatin 20 MG TAB PO SCH (20:42)
[2022-05-31] MEDS: Ketorolac Tromethamine 30 MG/ML VIAL IVP SCH (20:43)
[2022-06-01] MEDS: Acetaminophen/Codeine 30-300mg Tablet PO PRN (06:24)
[2022-06-01] MEDS: Ketorolac Tromethamine 30 MG/ML VIAL IVP SCH (06:25)
[2022-06-01 07:49] VITALS: BP 131/69; TEMP 98.5
[2022-06-01] MEDS: Famotidine 20 MG TAB PO SCH (08:14)
[2022-06-01] MEDS: Lisinopril 5 MG TAB PO SCH (08:14)
[2022-06-01] MEDS: Gabapentin 300 MG CAP PO SCH (08:14)
[2022-06-01] MEDS: Aspirin Chewable 81 MG TAB PO SCH (08:14)
[2022-06-01] MEDS: Escitalopram Oxalate 20 mg Tablet PO SCH (08:15)
[2022-06-01] MEDS ORDERED: Lidocaine 2% Viscous Solution 20 ML, Aluminum & Magnesium Hydroxide 30 ML, Donnatal Eli... SSW SCH (09:00)
[2022-06-01] MEDS ORDERED: Carvedilol 3.125 MG TAB PO SCH (17:00)
== END 2022-06-01 11:41 | disposition home or self-care (01) | DRG 287 ==
LOC: CCU 13:00 → OBSVTOIN 14:30 → 2SW 05-31 22:26
PROVIDERS: ADMIT Internal Medicine; ATTEND Internal Medicine
PROC: 4A023N7 Measurement of Cardiac Sampling and Pressure, Left Heart, Percutaneous Approach (ICD-10-PCS; principal; 2022-05-30)
PROC: B2111ZZ Fluoroscopy of Multiple Coronary Arteries using Low Osmolar Contrast (ICD-10-PCS; 2022-05-30)
PROC: B2151ZZ Fluoroscopy of Left Heart using Low Osmolar Contrast (ICD-10-PCS; 2022-05-30)
DX: I25.110 Atherosclerotic heart disease of native coronary artery with unstable angina pectoris (principal); I50.22 Chronic systolic (congestive) heart failure; I13.0 Hypertensive heart and chronic kidney disease with heart failure and stage 1 through stage 4 chronic kidney disease, or unspecified chronic kidney disease; F32.A Depression, unspecified; F41.9 Anxiety disorder, unspecified; G47.00 Insomnia, unspecified; N18.30 Chronic kidney disease, stage 3 unspecified; E78.5 Hyperlipidemia, unspecified; E11.40 Type 2 diabetes mellitus with diabetic neuropathy, unspecified; K21.9 Gastro-esophageal reflux disease without esophagitis; I08.1 Rheumatic disorders of both mitral and tricuspid valves; E11.22 Type 2 diabetes mellitus with diabetic chronic kidney disease; K27.9 Peptic ulcer, site unspecified, unspecified as acute or chronic, without hemorrhage or perforation; Z98.51 Tubal ligation status; Z82.49 Family history of ischemic heart disease and other diseases of the circulatory system; Z79.899 Other long term (current) drug therapy; Z79.82 Long term (current) use of aspirin
CPT/HCPCS: 36415; 36416; 80048; 85025; 93005; 93010; 93306; 94760; C1769; J1644; J1815; J1885; J2001; J2250; J2272; J3010; J7050

== ENCOUNTER 2022-08-28 08:59 | Outpatient (CLI) | payer MEDICARE, MEDICAID | END 2022-08-28 09:00 | disposition home or self-care (01) | LOC: BICMAMMO 08:59 | PROVIDERS: ATTEND Internal Medicine | DX: N64.4 Mastodynia (principal) | CPT/HCPCS: 77066; G0279 ==

== ENCOUNTER 2023-06-10 12:20 | Outpatient (CLI) | payer OTHER, MEDICAID ==
[2023-06-10] MEDS ORDERED: Bacteriostatic Normal Saline 30 ML VIAL ONE (15:32)
[2023-06-10] MEDS ORDERED: Sterile Water 10 ML ONE (15:32)
[2023-06-10] MEDS ORDERED: Sincalide 5 MCG VIAL ONE (15:32)
== END 2023-06-10 12:21 | disposition home or self-care (01) ==
LOC: NM 12:20
PROVIDERS: ATTEND Physician Assistant Medical
DX: R10.13 Epigastric pain (principal); R10.2 Pelvic and perineal pain; K83.8 Other specified diseases of biliary tract
CPT/HCPCS: 78227; A9537; J2805

== ENCOUNTER 2023-10-02 11:20 | Outpatient (CLI) | payer OTHER, MEDICAID | END 2023-10-02 11:21 | disposition home or self-care (01) | LOC: BICMAMMO 11:20 | PROVIDERS: ATTEND Family Medicine | DX: Z12.31 Encounter for screening mammogram for malignant neoplasm of breast (principal) | CPT/HCPCS: 77063; 77067 ==

== ENCOUNTER → 2024-03-24 | Outpatient (CLI) | payer OTHER | LOC: CT 08:55 | PROVIDERS: ATTEND Physician Assistant Medical | DX: R10.13 Epigastric pain (principal); K59.00 Constipation, unspecified; R63.0 Anorexia; K55.1 Chronic vascular disorders of intestine | CPT/HCPCS: 74174 ==

== ENCOUNTER 2025-02-28 10:21 | Outpatient (CLI) | payer OTHER | END 2025-02-28 10:22 | disposition home or self-care (01) | LOC: BICRAD 10:21 | PROVIDERS: ATTEND Physician Assistant Medical | DX: R10.11 Right upper quadrant pain (principal); R10.A1 Flank pain, right side; K59.00 Constipation, unspecified; R19.7 Diarrhea, unspecified | CPT/HCPCS: 74019 ==

== ENCOUNTER 2025-03-28 08:25 | Outpatient (CLI) | payer OTHER | END 2025-03-28 08:26 | disposition home or self-care (01) | LOC: NM 08:25 | PROVIDERS: ATTEND Physician Assistant Medical | DX: R11.2 Nausea with vomiting, unspecified (principal); R10.11 Right upper quadrant pain; R19.8 Other specified symptoms and signs involving the digestive system and abdomen; E11.65 Type 2 diabetes mellitus with hyperglycemia | CPT/HCPCS: 78264; A9541 ==